=== PATIENT | female | born 1955 | race Caucasian/White ===

== ENCOUNTER 2018-05-24 19:56 | Emergency (ER) | payer BC ==
[2018-05-24 20:09] VITALS: BP 192/97
--- NOTE | 2018-05-24 20:22 | UC ---
Abdominal Pain Female HPI - HPI Summary HPI Summary: This is jasmina Jones documenting for attending Carlos Lainez MD. This patient is a 62 year old F presenting to [facility] accompanied by her with a chief complaint of cramping abdominal pain since 4 days ago. The patient notes that the pain began in her LLQ and has since radiated to her RLQ. The patient rates the pain 9/10 in severity. Symptoms aggravated by change in position. Symptoms alleviated by nothing. Patient reports bloating, sore throat , decreased appetite, and feeling hot and flushed. Patient denies abnormal bowel movements or dysuria. Patient has hx of diabetes. - History of Current Complaint Chief Complaint: UCAbdominalPain Stated Complaint: ABD PAIN Time Seen by Provider: 05/24/18 20:11 Hx Obtained From: Patient Onset/Duration: Gradual Onset, Lasting Days - 4 days, Still Present Timing: Constant Severity Initially: Moderate Severity Currently: Moderate Pain Intensity: 9 Pain Scale Used: 0-10 Numeric Location: Discrete At: LLQ Radiates: Yes Radiates to: RLQ Character: Cramping Aggravating Factor(s): Movement - change in position Alleviating Factor(s): Nothing Associated Signs and Symptoms: Positive: Decreased Appetite. Negative: Urinary Symptoms Allergies/Adverse Reactions: Allergies Allergy/AdvReac Type Severity Reaction Status Date / Time bacitracin Allergy Rash Verified 05/24/18 20:10 [From Neosporin ([id number])] latex Allergy Rash Verified 05/24/18 20:10 neomycin Allergy Rash Verified 05/24/18 20:10 [From Neosporin ([id number])] polymyxin B Allergy Rash Verified 05/24/18 20:10 [From Neosporin ([id number])] tetracycline Allergy Swelling Verified 05/24/18 20:10 novacaine Allergy Rash Uncoded 05/24/18 20:10 Home Medications: Home Medications NK [No Home Medications Reported] 05/24/18 [History Confirmed 05/24/18] PMH/Surg Hx/FS Hx/Imm Hx Endocrine History: Diabetes - Surgical History Surgical History: Yes Surgery Procedure, Year, and Place: ARTHROSCOPIC BOTH KNEES,2009,2010-ABLATION LEFT LEG, R BREAST MARKER, TONSILLECTOMY - Family History Known Family History: Positive: None, Other - Pt denies any relevant family history. - Social History Alcohol Use: None Substance Use Type: None Smoking Status (MU): Never Smoked Tobacco - Immunization History Most Recent Influenza Vaccination: never Most Recent Tetanus Shot: unsure Most Recent Pneumonia Vaccination: has not had Review of Systems Constitutional: Other - feeling hot and flushed ENT: Sore Throat Gastrointestinal: Negative - negative diarrhea, Abdominal Pain - LLQ, RLQ Genitourinary: Negative - negative dysuria All Other Systems Reviewed And Are Negative: Yes Physical Exam - Summary Physical Exam Summary: General: well-appearing, mild pain distress Skin: warm, color reflects adequate perfusion, dry Head: normal Eyes: EOMI, SRIDHAR ENT: normal Neck: supple, nontender Respiratory: CTA, breath sounds present Cardiovascular: RRR Abdomen: soft, tender to palpation in LLQ, hypoactive bowel sounds Bowel: present Musculoskeletal: normal, strength/ROM intact Neurological: sensory/motor intact, A&O x3 Psychological: affect/mood appropriate Triage Information Reviewed: Yes Vital Signs: Initial Vital Signs Temp 99.4 F 05/24/18 20:03 Pulse 92 05/24/18 20:03 Resp 18 05/24/18 20:03 BP 192/97 05/24/18 20:03 Pulse Ox 99 05/24/18 20:03 Vital Signs Reviewed: Yes Discharge - Sign-Out/Discharge Documenting (check all that apply): Patient Departure - Discharge Plan Condition: Stable Disposition: HOME-RECOMMEND TO ED Patient Education Materials: Acute Abdominal Pain (ED) Referrals: Pierce Fernández MD [Primary Care Provider] - Additional Instructions: GO DIRECTLY TO THE EMERGENCY DEPARTMENT FOR FURTHER EVALUATION OF YOUR ABDOMINAL PAIN.
== END 2018-05-24 20:25 | disposition home health service (06) ==
LOC: UCEAST 19:56
DX: R10.32 Left lower quadrant pain (principal); R10.31 Right lower quadrant pain; R63.0 Anorexia; J02.9 Acute pharyngitis, unspecified; R14.0 Abdominal distension (gaseous); E11.9 Type 2 diabetes mellitus without complications; Z88.1 Allergy status to other antibiotic agents; Z91.040 Latex allergy status; Z88.8 Allergy status to other drugs, medicaments and biological substances
CPT/HCPCS: 99212; G0463

== ENCOUNTER 2018-05-24 20:44 | Emergency (ER) | payer BC ==
[2018-05-24] MEDS ORDERED: NS 0.9% 1000 ML* 1,000 ML IV ONE (22:00)
[2018-05-24] MEDS ORDERED: Ondansetron INJ* 2 MG/ML VIAL IV PRN (22:00)
[2018-05-24] MEDS ORDERED: Morphine VIAL* 10 MG/ML 1 ML VIAL IV ONE (22:00)
[2018-05-24 22:24] LABS: ABS Basophils 0.1 10^3/ul (0-0.2); ABS Eosinophils 0.1 10^3/ul (0-0.6); ABS Lymphocytes 2.6 10^3/ul (1.0-4.8); ABS Neutrophils 8.6 10^3/ul (1.5-7.7); ABS Nucleated RBC 0 10^3/ul; Eosinophil % 0.9 % (0-6); Hematocrit 39 % (35-47); Hemoglobin 13.1 g/dl (12.0-16.0); Lymphocyte % 21.1 % (25-47); Mean Corpuscular HGB Conc 33 g/dl (31-36); Mean Corpuscular Hemoglobin 28 pg (27-31); Mean Corpuscular Volume 85 fL (80-97); Mean Platelet Volume 9.1 um3 (7.4-10.4); Nucleated Red Blood Cells % 0; Platelet Count 159 10^3/ul (150-450); Red Blood Count 4.63 10^6/ul (4.00-5.40); Red Cell Distribution Width 17 % (10.5-15); White Blood Count 12.5 10^3/ul (3.5-10.8)
[2018-05-24 22:42] LABS: EGFR Non-African American 83.4 (>60)
[2018-05-24] MEDS ORDERED: Iodixanol* (CONTRAST) 320 MG/ML 100 ML SDV IV ONE (23:08)
[2018-05-25] MEDS ORDERED: Levofloxacin TAB* 500 MG PO ONE (03:13)
[2018-05-25] MEDS ORDERED: metroNIDAZOLE TAB* 250 MG PO ONE (03:14)
--- NOTE | 2018-05-25 03:19 | ED ---
Abdominal Pain/Female - HPI Summary HPI Summary: Complains of left lower quadrant pain, nausea, hot flashes, bloating, decreased appetite 4 days. Sent from urgent care for further evaluation. Abdominal pain described as sharp, intermittent, worse 9/10, radiating to right side. Denies prior history of same, fever, cough, sore throat, CP, SOB, diarrhea, change in urine, vaginal symptoms. Medical history is HTN, DM, gastroparesis. History of noncompliance with HTN and DM meds. Abdominal/pelvic surgical history is none. - History of Current Complaint Chief Complaint: EDAbdPain Stated Complaint: ABD PAIN/FEVER Time Seen by Provider: 05/24/18 21:56 Hx Obtained From: Patient ?: No Onset/Duration: Lasting Days Timing: Intermittent Episode Lasting Severity Initially: Moderate Severity Currently: Moderate Pain Intensity: 9 Pain Scale Used: 0-10 Numeric Location: Discrete At: RLQ, Discrete At: LLQ Radiates: No Character: Sharp Aggravating Factor(s): Nothing Alleviating Factor(s): Nothing Associated Signs and Symptoms: Positive: Decreased Appetite, Vomiting Allergies/Adverse Reactions: Allergies Allergy/AdvReac Type Severity Reaction Status Date / Time bacitracin Allergy Rash Verified 05/24/18 20:59 [From Neosporin ([id number])] latex Allergy Rash Verified 05/24/18 20:59 neomycin Allergy Rash Verified 05/24/18 20:59 [From Neosporin ([id number])] polymyxin B Allergy Rash Verified 05/24/18 20:59 [From Neosporin ([id number])] tetracycline Allergy Swelling Verified 05/24/18 20:59 novacaine Allergy Rash Uncoded 05/24/18 20:59 PMH/Surg Hx/FS Hx/Imm Hx Endocrine/Hematology History: Reports: Hx Diabetes - TYPE II, Other Endocrine/ Hematological Disorders - hx leukemia Cardiovascular History: Reports: Hx Hypertension Denies: Hx Cardiac Arrest, Hx Pacemaker/ICD History: Denies: Hx Dialysis, Hx Renal Disease Sensory History: Denies: Hx Hearing Aid Neurological History: Denies: Hx CVA Psychiatric History: Denies: Hx Panic Disorder - Cancer History Cancer Type, 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 - Social History Alcohol Use: None Substance Use Type: Reports: None Smoking Status (MU): Never Smoked Tobacco Review of Systems Constitutional: Negative Eyes: Negative ENT: Negative Cardiovascular: Negative Respiratory: Negative Positive: Abdominal Pain, Vomiting, Nausea Genitourinary: Negative Musculoskeletal: Negative Skin: Negative Neurological: Negative Psychological: Normal All Other Systems Reviewed And Are Negative: Yes Physical Exam - Summary Physical Exam Summary: Tender to palpation left lower quadrant. Triage Information Reviewed: Yes Vital Signs On Initial Exam: Initial Vitals Temp Pulse Resp BP Pulse Ox 99 F 86 17 163/94 98 05/24/18 20:59 05/24/18 20:59 05/24/18 20:59 05/24/18 20:59 05/24/18 20:59 Vital Signs Reviewed: Yes Appearance: Positive: Well-Appearing Skin: Positive: Warm Head/Face: Positive: Normal Head/Face Inspection Eyes: Positive: Normal Neck: Positive: Supple Respiratory/Lung Sounds: Positive: Clear to Auscultation Cardiovascular: Positive: Normal Abdomen Description: Positive: Other: Musculoskeletal: Positive: Normal Neurological: Positive: Normal Psychiatric: Positive: Normal AVPU Assessment: Alert - [place] Coma Scale Best Eye Response: 4 - Spontaneous Best Motor Response: 6 - Obeys Commands Best Verbal Response: 5 - Oriented Coma Scale Total: 15 Diagnostics - Vital Signs Vital Signs Temp Pulse Resp BP Pulse Ox 05/25/18 02:31 93 132/77 91 05/25/18 02:02 89 119/70 92 05/25/18 02:00 89 93 05/25/18 01:31 80 159/76 93 05/25/18 01:01 73 138/89 93 05/25/18 01:00 75 94 05/25/18 00:01 78 147/75 94 05/25/18 00:00 75 94 05/24/18 23:32 76 161/81 94 05/24/18 23:02 75 135/70 93 05/24/18 23:00 72 93 05/24/18 22:49 16 05/24/18 22:31 79 155/84 93 05/24/18 22:06 92 182/99 97 05/24/18 22:01 92 98 05/24/18 20:59 99 F 86 17 163/94 98 - Laboratory Lab Results: Lab Results 05/24/18 05/24/18 05/24/18 Range/Units 22:14 22:14 22:14 WBC 12.5 H (3.5-10.8) 10^3/ul RBC 4.63 (4.00-5.40) 10^6/ul Hgb 13.1 (12.0-16.0) g/dl Hct 39 (35-47) % MCV 85 (80-97) fL MCH 28 (27-31) pg MCHC 33 (31-36) g/dl RDW 17 H (10.5-15) % Plt Count 159 (150-450) 10^3/ul MPV 9.1 (7.4-10.4) um3 Neut % (Auto) 68.9 (38-83) % Lymph % (Auto) 21.1 L (25-47) % [place] % (Auto) 8.2 H (0-7) % Eos % (Auto) 0.9 (0-6) % Baso % (Auto) 0.9 (0-2) % Absolute Neuts (auto) 8.6 H (1.5-7.7) 10^3/ul Absolute Lymphs (auto) 2.6 (1.0-4.8) 10^3/ul Absolute Monos (auto) 1.0 H (0-0.8) 10^3/ul Absolute Eos (auto) 0.1 (0-0.6) 10^3/ul Absolute Basos (auto) 0.1 (0-0.2) 10^3/ul Absolute Nucleated RBC 0 10^3/ul Nucleated RBC % 0 Sodium 131 L (135-145) mmol/L Potassium 3.9 (3.5-5.0) mmol/L Chloride 99 L (101-111) mmol/L Carbon Dioxide 27 (22-32) mmol/L Anion Gap 5 (2-11) mmol/L BUN 12 (6-24) mg/dL Creatinine 0.71 (0.51-0.95) mg/dL Est GFR ( Amer) 100.9 (>60) Est GFR (Non-Af Amer) 83.4 (>60) BUN/Creatinine Ratio 16.9 (8-20) Glucose 208 H (70-100) mg/dL Lactic Acid 0.8 (0.5-2.0) mmol/L Calcium 8.7 (8.6-10.3) mg/dL Total Bilirubin 0.60 (0.2-1.0) mg/dL AST 13 (13-39) U/L ALT 17 (7-52) U/L Alkaline Phosphatase 61 (34-104) U/L C-Reactive Protein 41.12 H (<8.01) mg/L Total Protein 9.0 H (6.4-8.9) g/dL Albumin 3.4 (3.2-5.2) g/dL Globulin 5.6 H (2-4) g/dL Albumin/Globulin Ratio 0.6 L (1-3) Lipase 11 (11.0-82.0) U/L Result Diagrams: 05/24/18 22:14 05/24/18 22:14 Lab Statement: Any lab studies that have been ordered have been reviewed, and results considered in the medical decision making process. - CT ab/pel w CT Interpretation: Positive (See Comments) - Diverticulitis CT Interpretation Completed By: Radiologist Abdominal Pain Fem Course/Dx - Course Course Of Treatment: Complains of left lower quadrant pain, nausea, hot flashes , bloating, decreased appetite 4 days. Sent from urgent care for further evaluation. Abdominal pain described as sharp, intermittent, worse 9/10, radiating to right side. Denies prior history of same, fever, cough, sore throat, CP, SOB, diarrhea, change in urine, vaginal symptoms. Medical history is HTN, DM, gastroparesis. History of noncompliance with HTN and DM meds. Abdominal/pelvic surgical history is none. Tender to palpation left lower quadrant. Vital signs normal. Elevated white count. Labs otherwise normal. ET positive for diverticulitis. Started on Levaquin and Flagyl here in the ED. Rx for Levaquin 500 mg daily, Flagyl 500 mg 3 times a day, both 7 days. Rx for Phenergan. Rx for tramadol. Follow up with GI - Diagnoses Provider Diagnoses: Diverticulitis Discharge - Sign-Out/Discharge Documenting (check all that apply): Patient Departure - Discharge Plan Condition: Stable Disposition: HOME Prescriptions: Levofloxacin TAB* [Levaquin TAB*] 500 mg PO DAILY 7 Days #7 tab metroNIDAZOLE [Flagyl 500 MG TAB] 500 mg PO TID 7 Days #21 tab Promethazine TAB* [Phenergan TAB*] 25 mg PO Q8H PRN 5 Days #15 tab PRN Reason: Nausea Tramadol HCl 50 mg PO TID 4 Days #8 tablet MDD 3 Patient Education Materials: Diverticulitis (ED), Diverticulitis Diet (ED) Referrals: Pirece Fernández MD [Primary Care Provider] - Additional Instructions: Take antibiotics as directed. Follow-up with primary care. Return to the ED for any new or worsening symptoms - Billing Disposition and Condition Condition: STABLE Disposition: Home
[2018-05-25] MEDS ORDERED: traMADol TAB* 50 MG PO ONE (03:26)
[2018-05-25 03:34] VITALS: BP 159/79
--- NOTE | 2018-05-25 08:09 | RAD ---
INDICATION: 4 days abdominal pain. Nausea. Remote history of childhood leukemia. COMPARISON: August 08, 2015 abdominal ultrasound. TECHNIQUE: Multidetector CT images were obtained from the lung bases to the ischial tuberosities with 141 mL Visipaque 320 IV and oral contrast. Multiplanar reformation. REPORT: VISUALIZED INFERIOR THORAX: Unremarkable. LIVER / GALLBLADDER / PANCREAS / SPLEEN: Decreased density of the liver consistent with hepatosteatosis. Negative for focal hepatic lesions or biliary dilatation. Unremarkable gallbladder, pancreas, spleen. ALIMENTARY TRACT: Negative for CT abnormality of the upper GI, small bowel, or immediate infra cecal appendix best visualized on the coronal reformatted images. Moderately severe colonic diverticulosis most prominent at the sigmoid colon. Mural bowel thickening at the proximal sigmoid colon with mild perienteric inflammatory change and trace fluid along the LEFT pelvic sidewall. No extra enteric gas or loculated perienteric abscess collection evident. Small fat-containing umbilical hernia without inflammatory change. MESENTERIC: Unremarkable. ADRENAL / GENITOURINARY: Normal RIGHT adrenal gland. 1.4 cm diameter LEFT adrenal nodule is denser than specific for a lipid rich adenoma however assessment is limited with contrast-enhanced CT. Unremarkable kidneys with symmetric nephrograms and pyelograms. No CT abnormality of the kidneys, ureters, or urinary bladder. Unremarkable anteverted uterus and adnexal regions. RETROPERITONEAL: Negative for lymphadenopathy. VASCULAR: Negative for aortoiliac aneurysm. Incomplete distention of the IVC. BONES: Negative for suspicious focal osseous lesions. Advanced degenerative spondylosis and facet joint osteoarthritis at L4-L5 and L5-S1 with moderate bilateral foraminal stenosis resulting at both levels. SOFT TISSUE: Unremarkable. IMPRESSION: #. Hepatosteatosis. #. Abnormalities at the proximal sigmoid colon most likely attributable to acute diverticulitis with mild perienteric inflammatory change and trace free fluid along the LEFT pelvic sidewall. Negative for extra enteric gas or perienteric abscess. Imaging follow-up after therapy suggested to assess for resolution of the bowel wall thickening. #. Noncontrast CT of the adrenal glands suggesting that time of CT follow-up of the sigmoid colon to further characterize the relative low suspicion small 1.4 cm LEFT adrenal nodule.
== END 2018-05-25 03:34 | disposition home or self-care (01) ==
LOC: ED 20:44
DX: K57.92 Diverticulitis of intestine, part unspecified, without perforation or abscess without bleeding (principal); R10.32 Left lower quadrant pain; R11.2 Nausea with vomiting, unspecified
CPT/HCPCS: 36415; 74177; 80053; 83605; 83690; 85025; 86140; 96361; 96374; 99284; A9270-GY; J2270; Q9967

== ENCOUNTER 2018-08-25 05:58 | Day surgery (SDC) | payer BC ==
[~2018-08-25 05:58] MED LIST: Buffered Lidocaine 0.9% SYRIN* 5 ML/SYR SYRINGE INTRADERM ONE
[2018-08-25] MEDS ORDERED: Famotidine IV* 10 MG/ML 2 ML (20 mg) IV ONE (06:00)
[2018-08-25] MEDS ORDERED: Buffered Lidocaine 0.9% SYRIN* 5 ML/SYR SYRINGE ONE (06:03)
[2018-08-25] MEDS ORDERED: Famotidine IV* 10 MG/ML 2 ML (20 mg) ONE (06:03)
[2018-08-25 06:55] LABS: ABS Basophils 0.1 10^3/ul (0-0.2); ABS Eosinophils 0.2 10^3/ul (0-0.6); ABS Lymphocytes 2.8 10^3/ul (1.0-4.8); ABS Monocytes 0.8 10^3/ul (0-0.8); ABS Neutrophils 3.9 10^3/ul (1.5-7.7); ABS Nucleated RBC 0 10^3/ul; Eosinophil % 2.2 % (0-6); Hematocrit 39 % (35-47); Hemoglobin 13.1 g/dl (12.0-16.0); Lymphocyte % 36.3 % (25-47); Mean Corpuscular HGB Conc 33 g/dl (31-36); Mean Corpuscular Hemoglobin 29 pg (27-31); Mean Corpuscular Volume 87 fL (80-97); Mean Platelet Volume 8.9 um3 (7.4-10.4); Nucleated Red Blood Cells % 0.1; Platelet Count 181 10^3/ul (150-450); Red Blood Count 4.53 10^6/ul (4.00-5.40); Red Cell Distribution Width 17 % (10.5-15); White Blood Count 7.8 10^3/ul (3.5-10.8)
[2018-08-25] MEDS ORDERED: fentaNYL* 50 MCG/ML 2 ML VIAL (100 MCG VIAL) ONE ×2 (07:12→08:29)
[2018-08-25] MEDS ORDERED: Mivacurium Chloride* 20 MG/10 ML VIAL IV ONE (07:12)
[2018-08-25] MEDS ORDERED: Ketorolac INJ* 30 MG/ML 1 ML VIAL ONE ×2 (07:12→07:13)
[2018-08-25] MEDS ORDERED: Propofol* 10 MG/ML 20 ML BTL IV PUSH ONE (07:12)
[2018-08-25] MEDS ORDERED: Midazolam* 1 MG/ML 5 ML VIAL (5 MG) ONE (07:12)
[2018-08-25] MEDS ORDERED: Lidocaine 2% PF * 5 ML VIAL ONE (07:12)
[2018-08-25] MEDS ORDERED: Ondansetron INJ* 2 MG/ML VIAL ONE (07:12)
[2018-08-25] MEDS ORDERED: Dexamethasone IV* 4 MG/ML 1 ML (4 MG) ONE (07:12)
[2018-08-25] MEDS ORDERED: Metoclopramide IV* 5 MG/ML 2 ML VIAL ONE (07:12)
[2018-08-25] MEDS ORDERED: oxyCODONE/Acetamin 5/325 MG* TAB PO PRN (08:22)
[2018-08-25] MEDS ORDERED: Naloxone* 0.4 MG/ML 1 ML VIAL IV PRN (08:22)
[2018-08-25] MEDS ORDERED: Ondansetron INJ* 2 MG/ML VIAL IV PRN (08:22)
[2018-08-25] MEDS ORDERED: fentaNYL* 50 MCG/ML 2 ML VIAL (100 MCG VIAL) IV PRN (08:22)
[2018-08-25] MEDS ORDERED: Ibuprofen TAB* 600 MG PO PRN (08:58)
[2018-08-25 10:43] VITALS: BP 154/83
--- NOTE | 2018-08-25 11:28 | OP ---
OPERATIVE REPORT: DATE OF OPERATION: 08/25/18 DATE OF : 55 SURGEON: Michael Waterman MD ANESTHESIOLOGIST: Dr. Yin. ANESTHESIA: General endotracheal anesthesia. PRE-OP DIAGNOSIS: Postmenopausal bleeding. POST-OP DIAGNOSIS: Postmenopausal bleeding. OPERATIVE PROCEDURE: Dilation hysteroscopy curettage. ESTIMATED BLOOD LOSS: Minimal, less than 20 cc. FINDINGS: A small midline uterus with a posterior cervix. Uterus sounded to 7. On hysteroscopy, no polyps were seen. The endometrium appeared atrophic. Both tubal ostia were seen. No adnexal masses were palpated. The exam was limited by habitus. The deficit was 143 cc of fluid. COMPLICATIONS: None. SPONGE COUNT: Correct x2. CONDITION: The patient was brought to the recovery room awake and in stable condition. DESCRIPTION OF PROCEDURE: The patient was brought to the operating room. When general anesthesia wa s found to be adequate, the patient was prepped and draped in the usual sterile fashion in the dorsal lithotomy position. Time-out was performed. Exam under anesthesia was done. A weighted speculum w as placed in the vagina. The anterior lip of the cervix was grasped with a single tooth tenaculum an d the cervix was gently and easily dilated with graduated Velazquez dilators. The hysteroscope was intro duced with the above findings noted. The uterus was sounded to 7. The hysteroscope was removed. Cu rettage was performed and endometrial curettings were sent to pathology. The single tooth tenaculum was removed from the anterior lip of the cervix. Excellent hemostasis was visualized and the patient was brought to the recovery room awake and in stable condition. [id number]/[facility] #: [id number]
== END 2018-08-25 10:47 | disposition home or self-care (01) ==
LOC: OR 05:58
PROVIDERS: ATTEND Obstetrics & Gynecology
DX: N95.0 Postmenopausal bleeding (principal); I10 Essential (primary) hypertension; M19.90 Unspecified osteoarthritis, unspecified site; E11.9 Type 2 diabetes mellitus without complications
CPT/HCPCS: 36415; 85025; 86850; 86900; 86901; 88305; J1100; J1885; J2250; J2405; J2704; J2765; J3010

== ENCOUNTER 2019-07-13 20:55 | Emergency (ER) | payer BC ==
--- OUTSIDE RECORDS SUMMARY | 2019-07-13 21:03 | XMS REPORT | Continuity of Care Document ---
:1955 External Reference #:[id number] Author Name Sandra Latham M.D. (transmitted by agent of provider Kavita Aviles) Address [facility] 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 Onset: 2018 Premature beats Sandra Latham M.D. Onset: 06/18/2019 Supraventricular premature beats Sandra Latham M.D. Onset: 06/18/2019 Family history of cardiovascular disease in Sandra Latham M.D. Onset: 2018 first degree female relative less than 65 years of age Social History Type Date Description Comments Sex Unknown ETOH Use Denies alcohol use Tobacco Use Start: Unknown Patient has never smoked Smoking Status Reviewed: 06/18/19 Patient has never smoked Exercise Type/Frequency walking occassionally Allergies, Adverse Reactions, Alerts Active Allergies Reaction Severity Comments Date Neosporin rash 06/22/2018 Tetracycline 07/04/2018 Inactive Allergies NKDA 08/08/2012 Medications Active Medications SIG Qnty Indications Ordering Date Provider Luba CD 1 by mouth every 30caps R94.39 Sandra Latham, 05/25/2019 120mg Caps day M.D. ER 24HR Biotin 5000mcg One tab by mouth 4 Sandra Latham, 05/04/2019 days a week M.D. Vitamin C 100-MG one tab by mouth 4 Unknown 05/03/2019 days a week Solgar 1000mcg Sublingual 4 days Sandra Latham, 05/03/2019 a week [place] Chromium Picolate One tab by mouth 4 Unknown 05/03/2019 500mcg days a week Super B-Complex One tab by mouth 4 Unknown days a week Capsules Vitamin D3 1000 Iu One tab by mouth 4 Unknown days a week Vitamin A 3750mcg One tab by mouth 4 Unknown days a week Krill Oil 1 by mouth 4 days Unknown 1000mg a week Capsules Saccharomyces One tab by mouth 4 Unknown Boulardii + Mos 5 days a week Bill Cells 200MG Magnesium Potassium One tab by mouth 4 Unknown Asparate Mag 600MG days a week Pot 198MG History Medications Premarin 0.5grams vaginally 30gm N94.11 Michael Waterman, 01/30/2019 - 0.625mg/GM qHS x 14 nights 05/03/2019 Cream then 2x/week Medications Administered in Office Medication SIG Qnty Indications Ordering Provider Date Triamcinolone (Kenalog) Jakub Clinton MD 07/04/2018 Injection Immunizations Description No Information Available Vital Signs Date Vital Result Comment 06/18/2019 3:58pm Height 67.75 inches 5'7.75" Weight 250.00 lb no shoes. Heart Rate 72 /min BP Systolic Sitting 140 mmHg L arm regular cuff BP Diastolic Sitting 90 mmHg L arm regular cuff BP Systolic Standing 160 mmHg BP Diastolic Standing 90 mmHg Respiratory Rate 18 /min BMI (Body Mass Index) 38.3 kg/m2 Ejection Fraction 55-60% 04/201905/04/2019 10:06am Height 67.75 inches 5'7.75" Weight 254.12 lb with shoes Heart Rate 74 /min BP Systolic Sitting 142 mmHg ule reg cuff BP Diastolic Sitting 84 mmHg ule reg cuff BP Systolic Standing 136 mmHg ule reg cuff BP Diastolic Standing 80 mmHg ule reg cuff BMI (Body Mass Index) 38.9 kg/m2 Ejection Fraction 60-65% Echo 08/08/15 Results Test Date Facility Test Result H/L Range Note Comprehensive Metabolic 05/01/2019 N2N/CCD Import Sodium 139 mEq/L 134- 149 Prof Potassium 3.9 mEq/L 3.6-5.5 Chloride 102 mEq/L 94-112 Carbon Dioxide 31 mEq/L 21-32 Glucose 160 mg/dL High 70-105 1 BUN 15 mg/dL 6-26 Creatinine 0.6 mg/dL 0.6-1.4 BUN/Creat Ratio 25.0 CALC 8-36 Calcium 8.6 mg/dL 8.6-10.2 Total Protein 10.2 g/dL High 6.4-8.3 2 Albumin 3.5 g/dL Low 3.8-5.5 3 Globulin 6.7 g/dL High 2-4.8 A/G Ratio 0.5 CALC Low 0.6-2.3 Alk. Phosphatase 48 U/L 30-110 Alt (SGPT) 24 U/L 7-35 Ast (Sgot) 16 U/L 5-34 Total Bilirubin 0.7 mg/dL 0.2-1.3 GFR Non- >60 ml/min/1.73m^ GFR >60 ml/min/1.73m^ Lipid Profile 05/01/2019 N2N/CCD Import Cholesterol 152 mg/dL 120-200 Triglycerides 203 mg/dL High 30-200 HDL Cholesterol 38 mg/dL 30-85 LDL (Calculated) 73 CALC 0-129 VLDL Cholesterol 41 mg/dL 0-50 HDL Risk Factor 4.0 CALC 0-4.4 Laboratory test 01/30/2019 [facility] Gardnerella/Yeast: SEE RESULT [address] [place] [address] [phone] 1 NON-FASTING 2 consistent w/ previous results 3 RESULTS VERIFIED BY REPEAT ANALYSIS 4 SEE RESULT BELOW Name: FABIANA DICKINSON : [address]: Michael Waterman MD Acct: [id number] Unit: [id number] AGE: 63 Location: [facility] Re01/30/19 SEX: F Status: REG REF SPEC: [id number] ROB: 01/30/19-[address]: Michael Waterman MD REQ: [id number] RECD: 01/30/19 STATUS: COMP _ SOURCE: VAGINAL SPDESC: ORDERED: Maximus,Yeast DNA COMMENTS: [id number] Would you like to order Trichomonas Vaginalis testing? No Procedure Result Reported Site Gardnerella/Yeast: Vaginal DNA Final 01/31/19- 1230 ML Organism 1 Negative Gardnerella Organism 2 Negative Jocy The presence of G. vaginalis, although suggestive, is not diagnostic for bacterial vaginosis. Results should be interpreted in conjuction with other clinical and laboratory data available. Women with vaginal discharge should be evaluated for risk factors of cervicitis and pelvic inflammatory disease, toxic shock syndrome (S.aureus), and if present, evaluated for organisms not included in this assay such as N. gonorrhoeae, C. trachomatis, Mobiluncus, Mycoplasma and/or Prevotella. Mixed infections may occur. The performance of this test on patient specimens collected during or immediately after antimicrobial therapy is unknown. The presence or absence of Jocy species, or G. vaginalis cannot be used as a test for therapeutic success or failure. * [facility] - Main Lab . END OF REPORT DEPARTMENT OF PATHOLOGY, [address] [place] [address] Jamal Grady M.D. Director [facility] # [id number] Procedures Date Code Description Status 05/25/2019 17395 Stress Test Completed 05/09/2019 79214 ECHO Transthoracic, Real-Time 2D With Doppler And Color Completed Flow 05/09/2019 83326 ECHO Transthoracic, Real-Time 2D With Doppler And Color Completed Flow 05/04/2019 66449 EKG Tracing & Interpretation Completed 02/07/2019 [id number] Mammogram Completed 08/08/2015 [id number] Mammogram Completed Medical Devices Description No Information Available Encounters Type Date Location Provider Dx Diagnosis Office Visit 05/04/2019 [facility] Sandra Latham M.D. 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 06/18/2019 R06.02 Shortness of breath Sandra Latham M.D. 06/18/2019 I49.1 Atrial premature depolarization Sandra Latham M.D. 06/18/2019 I49.3 Ventricular premature depolarization Sandra Latham M.D. 06/18/2019 I10 Essential (primary) hypertension Sandra Latham M.D. 06/18/2019 I42.8 Other cardiomyopathies Sandra Latham M.D. 05/25/2019 R94.39 Abnormal result of other cardiovascular function Sandra Latham M.D. study 05/25/2019 I10 Essential (primary) hypertension Sandra Latham M.D. 05/25/2019 M79.10 Myalgia, unspecified site Sandra Latham M.D. 05/25/2019 R06.02 Shortness of breath Sandra Latham M.D. 05/09/2019 R06.02 Shortness of breath Sandra Latham M.D. 05/09/2019 R06.02 Shortness of breath Ica ECHO Schedule 05/09/2019 R00.2 Palpitations Sandra Latham M.D. 05/09/2019 R00.2 Palpitations Ica ECHO Schedule 05/09/2019 Z82.49 Family hx of ischem heart dis and oth dis of the Ica ECHO Schedule circ sys 05/04/2019 R00.2 Palpitations Sandra Latham M.D. 05/04/2019 R06.02 Shortness of breath Sandra Latham M.D. 05/04/2019 E11.8 Type 2 diabetes mellitus with unspecified Sandra Latham M.D. complications 05/04/2019 Z82.49 Family history of ischemic heart disease and Sandra Latham M.D. other diseases 05/04/2019 R06.01 Orthopnea Sandra Latham M.D. 01/30/2019 Z12.31 Encounter for screening mammogram for malignant Michael Waterman MD neoplasm of 01/30/2019 N94.11 Superficial (introital) dyspareunia Michael Waterman MD 01/30/2019 N64.4 Mastodynia Michael Waterman MD Plan of Treatment Future Appointment(s):07/12/2019 1:00 pm - Carl Desai MD at [facility]06/20/2019 4:30 pm - Yolanda Montero MD at [facility] Kkxflawdszr77/10/2019 2:00 pm - Micahel Waterman MD at [facility]09/04/2019 1:00 pm - Michael Waterman MD at [facility]2018 - Sandra Latham M.D.R00.2 PalpitationsComments:Your PVC's gave you symptoms.Continue Diltiazem.Follow up:6 months with ECG.R06.02 Shortness of breathComments:No evidence of significant blockages in the heart on the stress test. OK/encourage gradual increase in activity.I49.1 Atrial premature emtcprhzavbaiyG57.3 Ventricular premature depolarizationNew Orders: Echocardiogram, Ordered: 06/18/19I10 Essential (primary) hypertensionNew Orders: Echocardiogram, Ordered: 06/18/19Comments:Continue diltiazem.Recommendations: Avoid excessive salt, 2 grams (2000 milligrams) daily is your goal. Regular exercise, goal is 3 hours weekly. Check BP's at home or at a pharmacy and bring these in with you to the next visit. Future:may add ACEI or ARB with diabetes or increase cardiazem.I42.8 Other cardiomyopathiesNew Orders:Echocardiogram, Ordered: 06/18/19Comments:Thick heart flores are from high BP and Diabetes. Functional Status Description No Information Available Mental Status Description No Information Available Referrals Description No Information Available
--- OUTSIDE RECORDS SUMMARY | 2019-07-13 21:03 | XMS REPORT | Continuity of Care Document ---
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 Problems Active Problems Provider Date Disorder of [...] Use Start: Unknown Patient has never smoked Recreational Drug Use Denies Drug Use Smoking Status Reviewed: 07/12/19 Patient has never smoked Exercise Type/Frequency walking occassionally Allergies, Adverse Reactions, Alerts Active Allergies Reaction Severity Comments Date Neosporin rash 06/22/2018 Glipizide stomach ache 07/12/2019 Metformin stomach ache 07/12/2019 Sulfa Antibiotics stomach ache 07/12/2019 Inactive Allergies NKDA 08/08/2012 Tetracycline 07/04/2018 Sulfasalazine sick to stomach 07/12/2019 Medications Active Medications SIG Qnty Indications Ordering Date Provider Farxiga 5mg once daily in 30tabs E11.8 Carl Desai MD 07/12/2019 5mg Tablets the morning Cardizem CD 1 by mouth every 30caps R94.39 Sandra Vazquezsher, 05/25/2019 120mg Caps day M.D. ER 24HR Biotin 5000mcg One tab by mouth 4 Sandra Vazquezsher, 05/04/2019 days a week M.D. Vitamin C 100-MG one tab by mouth 4 Unknown 05/03/2019 days a week Solgar 1000mcg B-12 Sublingual 4 Sandra Noa, 05/03/2019 days a week M.D. Chromium Picolate One tab by mouth 4 [...] Available Vital Signs Date Vital Result Comment 07/12/2019 12:52pm Height 67.75 inches 5'7.75" Weight 254.00 lb w/ shoes Heart Rate 98 /min BP Systolic Sitting 171 mmHg BP Diastolic Sitting 87 mmHg BMI (Body Mass Index) 38.9 kg/m2 07/10/2019 2:06pm Height 67.75 inches 5'7.75" Weight 251.00 lb Heart Rate 87 /min BP Systolic Sitting 152 mmHg BP Diastolic Sitting 74 mmHg Respiratory Rate 18 /min Body Temperature 98.9 F O2 % BldC Oximetry 96 % BMI (Body Mass Index) 38.4 kg/m2 Results Test Date Facility Test Result H/L Range Note Laboratory test 07/10/2019 [facility] Cytology SEE RESULT [address] [place] [address] [phone] Comprehensive 05/01/2019 N2N/CCD Import Sodium 139 mEq/L 134-149 Metabolic Prof Potassium 3.9 mEq/L 3.6-5.5 Chloride 102 mEq/L 94-112 Carbon Dioxide 31 mEq/L 21-32 Glucose 160 mg/dL High 70-105 2 BUN 15 mg/dL 6-26 Creatinine 0.6 mg/dL 0.6-1.4 BUN/Creat Ratio 25.0 CALC 8-36 Calcium 8.6 mg/dL 8.6-10.2 Total Protein 10.2 g/dL High 6.4-8.3 3 Albumin 3.5 g/dL Low 3.8-5.5 4 Globulin 6.7 g/dL High 2-4.8 A/G Ratio [...] Factor 4.0 CALC 0-4.4 Laboratory test 01/30/2019 [facility] Gardnerella/Yeast: SEE RESULT [address] Vaginal Dna BELOW [place], [place] [address] [phone] 1 SEE RESULTS BELOW Name: FABIANA DICKINSON: [address]: Michael Waterman MD Acct: [id number] Unit: [id number] AGE: 63 Location: [facility] Re07/10/19 SEX: F Status: REG REF SPEC: [id number] ROB: 07/10/[address]: Michael Waterman MD REQ: [id number] RECD: 07/10/19 STATUS: SOUT _ ORDERED: TP IMAGE ANALYS, HPV/Thin Prep, HPV 16/18 GENE COMMENTS: [id number] Negative for Intraepithelial lesion or Malignancy Date Time Test Result Flag (u) Normal Range 07/10/19 1502 HPV ALPESH RFLX GE Negative Negative The high-risk HPV types detected by the assay include: 16, 18, 31, 33, 35, 39, 45, 51, 52, 56, 58, 59, 66, and 68. A. Ectocervical/Endocervical Specimen Adequacy: Satisfactory of evaluation Transformation zone component not identified Patient Information: HPV: High risk HPV RNA testing regardless of pap results. HPV 16/18 Genotype Reflex Actual Specimen Date: 07/10/19 ?: N Post Menopausal?: Y Hysterectomy?: N Signed by and Reported on: SINAN Dave(ASCP) 1138 This Pap test was evaluated with the assistance of the ThinPrep Test Imaging System. Due to cytologic findings at the application software engineer microscope, comprehensive manual rescreening by a Ductfixing Plumber may be required. The Pap Smear is a screening test designed to aid in the detection of premalignant and malignant conditions of the uterine cervix. It is not a diagnostic procedure and should not be used as the sole means of detecting cervical cancer. Both false- positive and false- negative reports do occur. Depending on your risk status, a Pap smear should be obtained and evaluated every 1-3 years. END OF REPORT DEPARTMENT OF PATHOLOGY, [address] [place] [address] Jamal Grady M.D. Director [facility] # [id number] 2 NON-FASTING 3 consistent w/ previous results 4 RESULTS VERIFIED BY REPEAT ANALYSIS 5 SEE RESULT BELOW Name: RAHATDASHAFABIANA : [address]: Michael Waterman MD Acct: [id number] Unit: [id number] AGE: 63 Location: [facility] Re01/30/19 SEX: F Status: REG REF SPEC: [id number] ROB: 01/30/19-[address]: Michael Waterman MD REQ: [id number] RECD: 01/30/19 STATUS: COMP _ SOURCE: VAGINAL SPDESC: ORDERED: Maximus,Yeast DNA COMMENTS: [id number] Would you like to order Trichomonas Vaginalis [...] . END OF REPORT DEPARTMENT OF PATHOLOGY, [address] [place] [address] Jamal Grady M.D. Director [facility] # [id number] Procedures Date Code Description Status 05/25/2019 27601 Stress Test Completed 05/09/2019 02046 ECHO Transthoracic, Real-Time 2D With Doppler And Color Completed Flow 05/09/2019 84577 ECHO Transthoracic, Real-Time 2D With Doppler And Color Completed Flow 05/04/2019 23689 EKG Tracing & Interpretation Completed 02/07/2019 [id number] Mammogram Completed 08/08/2015 [id number] Mammogram Completed Medical Devices Description No Information Available Encounters Type Date Location Provider Dx Diagnosis Office Visit 06/18/2019 [facility] Sandra Latham M.D. R00.2 Palpitations 3:20p [facility] R06.02 Shortness of breath I49.1 Atrial premature depolarization I49.3 Ventricular premature depolarization I10 Essential (primary) hypertension I42.8 Other cardiomyopathies Office Visit 05/04/2019 9:40a [facility] Sandra Latham R00.2 Palpitations Of [facility] AT [facility] [place] R06.02 Shortness of breath E11.8 Type 2 diabetes mellitus with unspecified complications Z82.49 Family hx of ischem heart dis and oth dis of the circ sys R06.01 Orthopnea Office Visit 01/30/2019 2:00p [employer] Michael Waterman, Z12.31 Encntr screen [facility] [place] mammogram for [place] malignant neoplasm of breast N94.11 Superficial (introital) dyspareunia N64.4 Mastodynia Assessments Date Code Description Provider 07/12/2019 E11.8 Type 2 diabetes mellitus with unspecified Carl Desai MD complications 07/12/2019 Z68.38 Body mass index (BMI) 38.0-38.9, adult Carl Desai MD 07/10/2019 Z01.419 Encounter for gynecological examination Michael Waterman MD (general) (routine) without abnormal findings 07/10/2019 Z11.51 Encounter for screening for human Michael Waterman MD papillomavirus (HPV) 06/18/2019 R00.2 Palpitations Sandra Latham M.D. 06/18/2019 R06.02 Shortness of breath Sandra Latham M.D. 06/18/2019 I49.1 Atrial premature depolarization Sandra Latham M.D. 06/18/2019 I49.3 Ventricular premature depolarization Sandra Latham M.D. 06/18/2019 I10 Essential (primary) hypertension Sandra Latham M.D. 06/18/2019 I42.8 Other cardiomyopathies Sandra Latham M.D. 05/25/2019 R94.39 Abnormal result of other cardiovascular Sandra Latham M.D. function study 05/25/2019 I10 Essential (primary) hypertension Sandra [...] ischem heart dis and oth dis of Ica ECHO Schedule the circ sys 05/04/2019 R00.2 Palpitations Sandra Latham [...] Mastodynia Michael Waterman MD Plan of Treatment 07/12/2019 - Carl Desai MDE11.8 Type 2 diabetes mellitus with unspecified complicationsNew Medication:Farxiga 5 mg - 5mg once daily in the morningInstructions:1. Reduce carbohydrate to 45g or less every day. 2. Continue your current medications and supplements. 3. Start Farxiga 1/2 of a 5mg tablet daily in the morning. 4. Continue Farxiga, if tolerated. 5. Avoid Farxiga, when sick. 6. Recheck A1c is 3 months. 7. Return to this clinic in 6 months.Z68.38 Body mass index (BMI) 38.0-38.9, adult Functional Status Description No Information Available Mental Status Description No Information Available Referrals Description No Information Available
--- OUTSIDE RECORDS SUMMARY | 2019-07-13 21:03 | XMS REPORT | Continuity of Care Document ---
:1955 External Reference #:[id number] Author Name Michael Waterman MD (transmitted by agent of provider Jessica Pickard) Address [address] [place] [phone] Care Team Providers Name Role Phone Pierce Fernández MD - Family Medicine Care Team Information Owner [phone] Problems Active Problems Provider Date Disorder of [...] Patient has never smoked Smoking Status Reviewed: 07/10/19 Patient has never smoked Exercise Type/Frequency walking [...] 4 days Sandra Latham, 05/03/2019 a week [facility] Chromium Picolate One tab by mouth 4 [...] Available Vital Signs Date Vital Result Comment 07/10/2019 2:06pm Height 67.75 inches 5'7.75" Weight 251.00 lb Heart Rate 87 /min BP Systolic Sitting 152 mmHg BP Diastolic Sitting 74 mmHg Respiratory Rate 18 /min Body Temperature 98.9 F O2 % BldC Oximetry 96 % BMI (Body Mass Index) 38.4 kg/m2 06/18/2019 3:58pm Height 67.75 inches 5'7.75" Weight 250.00 lb no shoes. Heart Rate 72 /min BP Systolic Sitting 140 mmHg L arm regular cuff BP Diastolic Sitting 90 mmHg L arm regular cuff BP Systolic Standing 160 mmHg BP Diastolic Standing 90 mmHg Respiratory Rate 18 /min BMI (Body Mass Index) 38.3 kg/m2 Ejection Fraction 55-60% 04/2019 Results Test Date Facility Test Result H/L [...] Factor 4.0 CALC 0-4.4 Laboratory test 01/30/2019 [facility] Gardnerella/Yeast: SEE RESULT [address] [address] [phone] 1 NON-FASTING 2 consistent w/ previous results 3 RESULTS VERIFIED BY REPEAT ANALYSIS 4 SEE RESULT BELOW Name: FABIANA DICKINSON: [address]: Michael Waterman MD Acct: [id number] Unit: [id number] AGE: 63 Location: [facility] Re01/30/19 SEX: F Status: REG REF SPEC: [id number] ROB: 01/30/19-[address] [address]: Michael Waterman MD REQ: [id number] RECD: 01/30/19 STATUS: COMP _ SOURCE: VAGINAL SPDESC: ORDERED: Maximus,Yeast DNA COMMENTS: [id number] Would you like to order Trichomonas Vaginalis [...] . END OF REPORT DEPARTMENT OF PATHOLOGY, [address] [place] [address] Jamal Grady M.D. Director [facility] # [id number] Procedures Date Code Description Status 05/25/2019 16152 Stress Test Completed 05/09/2019 94259 ECHO Transthoracic, Real-Time 2D With Doppler And Color Completed Flow 05/09/2019 10901 ECHO Transthoracic, Real-Time 2D With Doppler And Color Completed Flow 05/04/2019 26792 EKG Tracing & Interpretation Completed 02/07/2019 [id number] Mammogram Completed 08/08/2015 [id number] Mammogram Completed Medical Devices Description No Information Available Encounters Type Date Location Provider Dx Diagnosis Office Visit 06/18/2019 [facility] Sandra Latham M.D. R00.2 Palpitations 3:20p [facility] R06.02 Shortness of breath I49.1 Atrial premature depolarization I49.3 Ventricular premature depolarization I10 Essential (primary) hypertension I42.8 Other cardiomyopathies Office Visit 05/04/2019 9:40a [facility] Sandra Latham, R00.2 Palpitations Of [facility] [facility] [place] R06.02 Shortness of breath E11.8 Type 2 diabetes mellitus with unspecified complications Z82.49 Family hx of ischem heart dis and oth dis of the circ sys R06.01 Orthopnea Office Visit 01/30/2019 2:00p [facility] Michael Waterman, Z12.31 Encntr screen [facility] [place] mammogram for [place] malignant neoplasm of breast N94.11 Superficial (introital) dyspareunia N64.4 Mastodynia Assessments Date Code Description Provider 07/10/2019 Z01.419 Encounter for gynecological examination Michael Waterman MD (general) (routine) without abnormal findings 06/18/2019 R00.2 Palpitations Sandra Latham M.D. 06/18/2019 [...] Mastodynia Michael Waterman MD Plan of Treatment 07/10/2019 - Michael Waterman MDZ01.419 Encounter for gynecological examination ( general) (routine) without abnormal findingsNew Labs:Cytology, Ordered: Follow up:Plan Annual Tax Revenue Officer/sooner if needed Functional Status Description No Information Available Mental Status Description No Information Available Referrals Description No Information Available
--- NOTE | 2019-07-13 21:44 | UC ---
UC General HPI - HPI Summary HPI Summary: 63-year-old woman comes in with a chief complaint of right flank pain. This started couple days ago. Radiates to the right of her lumbar spine. Pain is worse with twisting turning bending. No dysuria no fevers no chills no rash. Denies any abdominal pain. Patient reports 3 weeks ago she was bit by a tick on her back. No bull's-eye rash. About 2 weeks ago she started with left hip pain. Pains worse with any kind of ambulation. Pain is in the left hip joint. No loss of strength or sensation. No specific trauma. - History of Current Complaint Chief Complaint: UCBackPain Stated Complaint: RIGHT FLANK PAIN Time Seen by Provider: 07/13/19 21:14 Pain Intensity: 10 - Allergy/Home Medications Allergies/Adverse Reactions: Allergies Allergy/AdvReac Type Severity Reaction Status Date / Time bacitracin Allergy Rash Verified 07/13/19 21:15 [From Neosporin (ror-[id number])] latex Allergy Rash Verified 07/13/19 21:15 neomycin Allergy Rash Verified 07/13/19 21:15 [From Neosporin (ozu-zfd-hgidt)] polymyxin B Allergy Rash Verified 07/13/19 21:15 [From Neosporin (hgy-knd-ujeix)] Sulfa (Sulfonamide Allergy swelling, Verified 07/13/19 21:15 Antibiotics) gi distress novacaine Allergy Rash Uncoded 07/13/19 21:15 Home Medications: Home Medications Dapagliflozin Propanediol [Farxiga] 07/13/19 [History Confirmed 07/13/19] dilTIAZem HCl [Cartia Xt] 07/13/19 [History] PMH/Surg Hx/FS Hx/Imm Hx Previously Healthy: Yes Cardiovascular History: Hypertension - Surgical History Surgical History: Yes Surgery Procedure, Year, and Place: ARTHROSCOPIC BOTH KNEES,2007 & 2009,2010- ABLATION LEFT LEG, R BREAST MARKER, TONSILLECTOMY - Family History Known Family History: Positive: None, Other - Pt denies any relevant family history. - Social History Alcohol Use: None Substance Use Type: None Smoking Status (MU): Never Smoked Tobacco Have You Smoked in the Last Year: No - Immunization History Most Recent Influenza Vaccination: never Most Recent Tetanus Shot: unsure Most Recent Pneumonia Vaccination: has not had Review of Systems All Other Systems Reviewed And Are Negative: Yes Constitutional: Positive: Other - see hpi Skin: Positive: Negative Eyes: Positive: Negative ENT: Positive: Negative Respiratory: Positive: Negative Cardiovascular: Positive: Negative Gastrointestinal: Positive: Other - see hpi Genitourinary: Negative: Dysuria, Hematuria, Frequency, Urgency Motor: Positive: Other - see hpi Neurovascular: Positive: Negative Musculoskeletal: Positive: Other: - see hpi Neurological: Positive: Negative Psychological: Positive: Negative Is Patient Immunocompromised?: No Physical Exam Triage Information Reviewed: Yes Appearance: Well-Appearing, Well-Nourished, Pain Distress - mild with rom Vital Signs: Initial Vital Signs Temp 99.1 F 07/13/19 21:06 Pulse 95 07/13/19 21:06 Resp 20 07/13/19 21:06 Pulse Ox 99 07/13/19 21:06 Vital Signs Reviewed: Yes Eye Exam: Normal Eyes: Positive: Conjunctiva Clear Neck: Positive: Supple Respiratory: Positive: Lungs clear, Normal breath sounds, No respiratory distress Cardiovascular: Positive: RRR Abdomen Description: Positive: Nontender, Soft. Negative: CVA Tenderness (R), CVA Tenderness (L) Bowel Sounds: Positive: Present Musculoskeletal: Positive: Other: - When I palpate the right of the lumbar spine patient reports that is where the pain is however my palpation does not increase her pain. When she twists and bends that does increase the pain. She is also mildly tender to palpation over the left greater trochanter. Both of her legs have full strength full range of motion normal sensation. The pain to the right upper lumbar spine does become worse with hip flexion on the left side and right side. Neurological: Positive: Alert Psychological: Positive: Normal Response To Family Skin Exam: Normal Course/Dx - Course Course Of Treatment: For the tick bite 3 weeks ago in the left hip pain we have drawn a Lyme screen. I discussed the x-rays with the patient. I do not see any fracture radiologist reading is pending. Discussed the urinalysis there is some protein in blood in their there is no leukocytes. Patient's back pain is worse with twisting turning bending it's better with rest and not moving. She has no abdominal pain. At this time her right flank and right lumbar pain is consistent with musculoskeletal pain. I recommended anti-inflammatories such as ibuprofen which the patient is reluctant to take because of her hypertension and also Flexeril when necessary. I did discuss with her if the pain started coming around into the abdomen or if there is any worsening or any other concerns she does not get reevaluated. - Diagnoses Provider Diagnosis: Low back pain, Right flank pain, Left hip pain, Tick bite Discharge ED - Sign-Out/Discharge Documenting (check all that apply): Patient Departure All imaging exams completed and their final reports reviewed: No - Discharge Plan Condition: Stable Disposition: HOME Patient Education Materials: Tick Bite (ED), Acute Low Back Pain (ED), Flank Pain (ED), Hip Pain (ED) Referrals: Pierce Fernández MD [Primary Care Provider] - - Billing Disposition and Condition Condition: STABLE Disposition: Home
[2019-07-13] MEDS ORDERED: Cyclobenzaprine TAB* 10 MG PO ONE (22:03)
--- NOTE | 2019-07-14 07:35 | UC ---
- Progress Note Progress Note: Reviewed Dr. Mendez's interprestation of hip xray: mild osteoarthritis. No change based on report. Course/Dx - Diagnoses Provider Diagnoses: Low back pain, Right flank pain, Left hip pain, Tick bite Discharge ED - Sign-Out/Discharge Documenting (check all that apply): Patient Departure All imaging exams completed and their final reports reviewed: Yes - Discharge Plan Condition: Stable Disposition: HOME Prescriptions: Cyclobenzaprine TAB* [Flexeril 10 MG TAB*] 10 mg PO TID PRN #15 tab MDD 3 PRN Reason: Pain - Moderate Patient Education Materials: Tick Bite (ED), Acute Low Back Pain (ED), Flank Pain (ED), Hip Pain (ED) Referrals: Pierce Fernández MD [Primary Care Provider] - - Billing Disposition and Condition Condition: STABLE Disposition: Home
== END 2019-07-13 22:25 | disposition home or self-care (01) ==
LOC: UCEAST 20:55
DX: M54.5 Low back pain (principal); R10.9 Unspecified abdominal pain; M25.552 Pain in left hip; S30.860A Insect bite (nonvenomous) of lower back and pelvis, initial encounter; W57.XXXA Bitten or stung by nonvenomous insect and other nonvenomous arthropods, initial encounter; Y92.9 Unspecified place or not applicable; I10 Essential (primary) hypertension; Z88.2 Allergy status to sulfonamides
CPT/HCPCS: 36415; 81003; 86618; 99212; A9270-GY; G0463

== ENCOUNTER 2019-08-19 01:14 | Emergency (ER) | payer BC ==
[2019-08-19 01:59] VITALS: BP 183/88
--- NOTE | 2019-08-19 02:12 | ED ---
Lower Extremity - HPI Summary HPI Summary: 63 year old female presents with right groin pain for the past two months. she denies any injury. states was seen at and had negative xray except for arthritis. she denies any numbness or tingling. no weakness. no back pain. states that only has pain when tries to walk. feels like pulling sensation. no loss of bowel or bladder. no saddle anaesthesia. no fevers. states now has occasionally back pain on right side. states take flexeril at night which helps a little. states pain is worst at night as has to ambulate to bathroom multiple times a night. states tried to follow up with primary but had to wait to long. has been following up with PT which has been helping. - History of Current Complaint Chief Complaint: EDHipPelvisInjury Stated Complaint: SENSE SEP 1 CANT PUT WEIGHT ON FOOT, CANT BEAR IT Time Seen by Provider: 08/19/19 01:49 Pain Intensity: 10 - Allergies/Home Medications Allergies/Adverse Reactions: Allergies Allergy/AdvReac Type Severity Reaction Status Date / Time bacitracin Allergy Rash Verified 07/13/19 21:15 [From Neosporin ([id number]-rfg-[id number])] latex Allergy Rash Verified 07/13/19 21:15 neomycin Allergy Rash Verified 07/13/19 21:15 [From Neosporin ([id number]-qkp-[id number])] polymyxin B Allergy Rash Verified 07/13/19 21:15 [From Neosporin ([id number]-rpj-kxstt)] Sulfa (Sulfonamide Allergy swelling, Verified 07/13/19 21:15 Antibiotics) gi distress novacaine Allergy Rash Uncoded 07/13/19 21:15 PMH/Surg Hx/FS Hx/Imm Hx Endocrine/Hematology History: Reports: Hx Diabetes - TYPE II, Other Endocrine/ Hematological Disorders - hx leukemia Cardiovascular History: Reports: Hx Hypertension Denies: Hx Cardiac Arrest, Hx Pacemaker/ICD GI History: Reports: Hx Irritable Bowel - "SLOW DIGESTION", Other GI Disorders - DIVERTICULITIS C-T SCAN DONE 05/17 History: Reports: Hx Kidney Infection - AT AGE 16 Denies: Hx Dialysis, Hx Renal Disease Musculoskeletal History: Reports: Hx Arthritis, Hx Bursitis - LEFT SHOULDER CORTISONE INJECTION, DONE 07/04/18, Other Musculoskeletal History - LEFT HIP PAIN , SLIGHT SCOLOSIS AND A SHORT LEG. 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 - Social History Alcohol Use: None Substance Use Type: Reports: None Smoking Status (MU): Never Smoked Tobacco Have You Smoked in the Last Year: No Review of Systems Negative: Fever Negative: Chest Pain Negative: Shortness Of Breath Positive: Myalgia - left hip pain All Other Systems Reviewed And Are Negative: Yes Physical Exam Triage Information Reviewed: Yes Vital Signs On Initial Exam: Initial Vitals Temp Pulse Resp BP Pulse Ox 99.5 F 91 20 177/78 94 08/19/19 01:20 08/19/19 01:20 08/19/19 01:20 08/19/19 01:20 08/19/19 01:20 Vital Signs Reviewed: Yes Appearance: Positive: Well-Appearing Skin: Positive: Warm, Dry Head/Face: Positive: Normal Head/Face Inspection Eyes: Positive: Normal, Conjunctiva Clear ENT: Positive: Pharynx normal Respiratory/Lung Sounds: Positive: Clear to Auscultation, Breath Sounds Present Cardiovascular: Positive: Normal, RRR Musculoskeletal: Positive: Strength/ROM Intact - left leg, Other - tenderness left groin, neg JARED test, nontender back, neg SLR, sensation grossly intact, good pulses, nontender hip and SI joint Neurological: Positive: Normal Psychiatric: Positive: Normal Procedures - Sedation Patient Received Moderate/Deep Sedation with Procedure: No Diagnostics - Vital Signs Vital Signs Temp Pulse Resp BP Pulse Ox 08/19/19 01:45 94 183/88 97 08/19/19 01:44 96 91 08/19/19 01:20 99.5 F 91 20 177/78 94 - Laboratory Lab Statement: Any lab studies that have been ordered have been reviewed, and results considered in the medical decision making process. Lower Extremity Course/Dx - Course Course Of Treatment: 63 year old female presents with right groin pain for the past two months. she denies any injury. states was seen at and had negative xray except for arthritis. she denies any numbness or tingling. no weakness. no back pain. states that only has pain when tries to walk. feels like pulling sensation. no loss of bowel or bladder. no saddle anaesthesia. no fevers. states now has occasionally back pain on right side. states take flexeril at night which helps a little. states pain is worst at night as has to ambulate to bathroom multiple times a night. states tried to follow up with primary but had to wait to long. has been following up with PT which has been helping. on exam tenderness right groin, nontender right hip, neg JARED test. neurovascular intact. discussed could be pulled groin muscle. patient is requesting note to use entrance for pool. discussed should use flexeril more frequently and if that is not working to use robaxin. patient understand and agrees with plan. - Diagnoses Differential Diagnosis/HQI/PQRI: Positive: Fracture (Closed), Sprain, Strain Provider Diagnoses: Left hip pain Discharge ED - Sign-Out/Discharge Documenting (check all that apply): Patient Departure - Discharge Plan Condition: Good Disposition: HOME Prescriptions: Methocarbamol TAB* [Robaxin 500 MG TAB*] 750 mg PO TID PRN #21 tab PRN Reason: Pain - Severe Patient Education Materials: Groin Pain (ED) Forms: *Gen. Provider Communication Referrals: Pierce Fernández MD [Primary Care Provider] - [facility] [Outside] Gallito Allen MD [Medical Doctor] - Additional Instructions: take flexeril three times a day, if no working stop and start robaxin follow up with ortho A referral was given for the number to help you get a new primary if desired start pool exercises apply heat and stretch Return to ED if develop any new or worsening symptoms - Billing Disposition and Condition Condition: GOOD Disposition: Home
== END 2019-08-19 02:24 | disposition home or self-care (01) ==
LOC: ED 01:14
DX: M25.552 Pain in left hip (principal); Z88.2 Allergy status to sulfonamides; E11.9 Type 2 diabetes mellitus without complications; I10 Essential (primary) hypertension

== ENCOUNTER 2019-11-26 16:33 | Observation (INO) | payer BC ==
--- OUTSIDE RECORDS SUMMARY | 2019-11-26 17:24 | XMS REPORT | Continuity of Care Document ---
:1955 External Reference #:[id number] Author Name Oliva Steen M.D. 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 Onset: region and thigh Hypertensive left ventricular hypertrophy Sandra Latham M.D. [...] Use Denies Drug Use Smoking Status Reviewed: 10/12/19 Patient has never smoked Exercise Type/Frequency walking [...] Cardizem CD 1 by mouth every 30caps Sandra Latham, 05/25/2019 120mg Caps day M.D. ER 24HR Solgar 1000mcg B-12 Sublingual 4 Sandra Latham, 05/03/2019 days a week M.D. Chromium Picolate [...] days a week Pot 198MG History Medications Biotin 5000mcg One tab by mouth 4 Sandra Latham M.D. 05/04/2019 - 2018 days a week Vitamin C 100-MG one tab by mouth 4 Unknown 05/03/2019 - 10/11/2019 days a week Medications Administered in Office Medication SIG Qnty Indications Ordering Provider Date Triamcinolone (Kenalog) Jakub Clinton MD 07/04/2018 Injection Immunizations Description No Information Available Vital Signs Date Vital Result Comment 10/12/2019 1:18pm Height 67.75 inches 5'7.75" Weight 243.00 lb Heart Rate 89 /min BP Systolic 160 mmHg BP Diastolic 100 mmHg Respiratory Rate 18 /min Body Temperature 98.8 F Pain Level 10 BMI (Body Mass Index) 37.2 kg/m2 07/12/2019 12:52pm Height 67.75 inches 5'7.75" Weight 254.00 lb w/ shoes Heart Rate 98 /min BP Systolic Sitting 171 mmHg BP Diastolic Sitting 87 mmHg BMI (Body Mass Index) 38.9 kg/m2 Results Test Acquired Date Facility Test Result H/L Range Note Laboratory test 07/10/2019 [facility] Cytology SEE RESULT [address] [place] [id number] [phone] Comprehensive 05/01/2019 N2N/CCD Import Sodium 139 mEq/L [...] 0-50 HDL Risk Factor 4.0 CALC 0-4.4 1 SEE RESULT BELOW Name: FABIANA DICKINSON : [address]: Michael Waterman MD Acct: [id number] Unit: [id number] AGE: 63 Location: [facility] Re07/10/19 SEX: F Status: REG REF SPEC: [id number] ROB: 07/10/19-1502 [facility] DR: Michael Waterman MD REQ: [id number] RECD: 07/10/19 STATUS: SOUT _ ORDERED: TP IMAGE ANALYS, HPV/Thin Prep, HPV 16/18 GENE COMMENTS: [id number] Negative for Intraepithelial lesion or Malignancy Date [...] was evaluated with the assistance of the Astro Test Imaging System. Due to cytologic findings at the bakery manager microscope, comprehensive manual rescreening by a Experience Designer may be required. The Pap Smear is [...] years. END OF REPORT DEPARTMENT OF PATHOLOGY, [address] [place] [address] Jamal Grady M.D. Director [facility] # [id number] 2 NON-FASTING 3 consistent w/ previous results 4 RESULTS VERIFIED BY REPEAT ANALYSIS Procedures Date Code Description Status 05/25/2019 00423 Stress Test Completed 05/09/2019 33174 ECHO Transthoracic, Real-Time 2D With Doppler And Color Completed Flow 05/09/2019 65488 ECHO Transthoracic, Real-Time 2D With Doppler And Color Completed Flow 05/04/2019 96846 EKG Tracing & Interpretation Completed 02/07/2019 [id number] Mammogram Completed 08/08/2015 [id number] Mammogram Completed Medical Devices Description No Information Available Encounters Type Date Location Provider Dx Diagnosis Office Visit 07/12/2019 [facility] Carl Desai MD E11.8 Type 2 diabetes 1:00p [facility] mellitus with unspecified complications Z68.38 Body mass index (BMI) 38.0-38.9, adult Office Visit 06/18/2019 3:20p [facility] Sandra Latham, R00.2 [facility] M.D. R06.02 Shortness of breath I49.1 Atrial premature depolarization I49.3 Ventricular premature depolarization I10 Essential (primary) hypertension I42.8 Other cardiomyopathies Office Visit 05/04/2019 9:40a [facility] Sandra Latham R00.2 [facility] AT [facility] M.D. R06.02 Shortness of breath E11.8 Type 2 diabetes mellitus with unspecified complications Z82.49 Family hx of ischem heart dis and oth dis of the circ sys R06.01 Orthopnea Assessments Date Code Description Provider 10/12/2019 M25.552 Pain in left hip Oliva Steen M.D. 10/12/2019 M16.12 Unilateral primary osteoarthritis, left hip Oliva Steen M.D. 10/12/2019 Z68.38 Body mass index (BMI) 38.0-38.9, adult Oliva Steen M.D. 07/12/2019 E11.8 Type 2 diabetes mellitus with [...] diseases 05/04/2019 R06.01 Orthopnea Sandra Latham M.D. Plan of Treatment 10/12/2019 - Oliva Steen M.D.M25.552 Pain in left hipFollow up:Follow up: None [id number] Unilateral primary osteoarthritis, left hipZ68.38 Body mass index (BMI) 38.0-38.9, adult Functional Status Description No Information Available Mental Status Description No Information Available Referrals Description No Information Available
--- NOTE | 2019-11-26 18:29 | ED ---
Shortness of Breath - HPI Summary HPI Summary: This patient is a 63 year old F presenting to ED with a chief complaint of shortness of breath since a few months ago. Patient denies fever. Patient had blood drawn this afternoon by her family care physician (Dr. Fernández) for a routine appointment, and they noted a hemoglobin of 6 rather than 12, per patient. Patient's bloodwork from earlier today are not uploaded into our system , however a report faxed over revealed the patient's bloodwork: hematocrit: 21.6 hemoglobin: 6.2, platelets:159. In 2018, patient was diagnosed with diverticulitis. On her CT scan, the patient reports there was suspicious growths on her adrenal glands. Patient reports that for the past year she has been having hip pain. After several visits to orthopedics, patient was sent for XRs and MRIs. She had a workup recently and was diagnosed with multiple myeloma four days ago. She has not had any biopsies yet. Patient has a history of childhood leukemia. She is scheduled to see Dr. [place], oncologist. The patient rates the pain 10/10 in severity. Symptoms aggravated by nothing. Symptoms alleviated by nothing. Patient denies taking any medications. Patients medication as entered in EMR reviewed this visit. - History of Current Complaint Chief Complaint: EDGeneral Time Seen by Provider: 11/26/19 18:18 Hx Obtained From: Patient Onset/Duration: Gradual Onset, Lasting Weeks - A few months, Still Present Timing: Constant Current Severity: Mild Dyspnea At: Rest Alleviating Factors: Nothing Associated Signs & Symptoms: Negative - Fever - Allergy/Home Medications Allergies/Adverse Reactions: Allergies Allergy/AdvReac Type Severity Reaction Status Date / Time bacitracin Allergy Rash Verified 11/26/19 17:01 [From Neosporin (lkl-sml-watra)] latex Allergy Rash Verified 11/26/19 17:01 neomycin Allergy Rash Verified 11/26/19 17:01 [From Neosporin (ryw-eis-esvtb)] polymyxin B Allergy Rash Verified 11/26/19 17:01 [From Neosporin (nsj-die-gkoih)] Sulfa (Sulfonamide Allergy swelling, Verified 11/26/19 17:01 Antibiotics) gi distress glipizide AdvReac Unknown Verified 11/27/19 11:34 Reaction Details metformin AdvReac Unknown Verified 11/27/19 11:34 Reaction Details novacaine Allergy Rash Uncoded 11/26/19 17:01 PMH/Surg Hx/FS Hx/Imm Hx Endocrine/Hematology History: Reports: Hx Diabetes - TYPE II, Other Endocrine/ Hematological Disorders - hx leukemia Cardiovascular History: Reports: Hx Hypertension Denies: Hx Cardiac Arrest, Hx Pacemaker/ICD GI History: Reports: Hx Irritable Bowel - "SLOW DIGESTION", Other GI Disorders - DIVERTICULITIS C-T SCAN DONE 05/17 History: Reports: Hx Kidney Infection - AT AGE 16 Denies: Hx Dialysis, Hx Renal Disease Musculoskeletal History: Reports: Hx Arthritis, Hx Bursitis - LEFT SHOULDER CORTISONE INJECTION, DONE 07/04/18, Other Musculoskeletal History - LEFT HIP PAIN , SLIGHT SCOLOSIS AND A SHORT LEG. 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 Multiple myeloma Hx Chemotherapy: No Hx Radiation Therapy: No - Surgical History Surgery Procedure, Year, and Place: ARTHROSCOPIC BOTH KNEES,2006 & 2008,2009- ABLATION LEFT LEG, R BREAST MARKER, TONSILLECTOMY Hx Anesthesia Reactions: No - Immunization History Date of Tetanus Vaccine: unk Date of Influenza Vaccine: none Infectious Disease History: No Infectious Disease History: Denies: History Other Infectious Disease, Traveled Outside the [place] in Last 30 Days - Family History Known Family History: Negative: Cardiac Disease, Hypertension - Social History Alcohol Use: None Hx Substance Use: No Substance Use Type: Reports: None Hx Tobacco Use: No Smoking Status (MU): Never Smoked Tobacco Have You Smoked in the Last Year: No Review of Systems Negative: Fever Positive: Shortness Of Breath All Other Systems Reviewed And Are Negative: Yes Physical Exam Triage Information Reviewed: Yes Vital Signs On Initial Exam: Initial Vitals Temp Pulse Resp BP Pulse Ox 98.8 F 87 19 166/75 99 11/26/19 16:59 11/26/19 16:59 11/26/19 16:59 11/26/19 16:59 11/26/19 16:59 Vital Signs Reviewed: Yes Procedures - Sedation Patient Received Moderate/Deep Sedation with Procedure: No Diagnostics - Vital Signs Vital Signs Temp Pulse Resp BP Pulse Ox 11/26/19 16:59 98.8 F 87 19 166/75 99 - Laboratory Result Diagrams: 11/27/19 06:03 11/27/19 06:03 Lab Statement: Any lab studies that have been ordered have been reviewed, and results considered in the medical decision making process. Re-Evaluation - Re-Evaluation First Eval Re-Evaluation Time: 18:47 Comment: Discussed Dr. Petit's recommendations with patient. Patient agrees with plan to wait for bloodwork before admission. Course/Dx - Course Assessment/Plan: Patient will be signed out from Dr. Kamini Rousseau to Dr. Jarred Douglas at [facility] on 11/26/2019 at 1900 pending blood work and disposition. - Diagnoses Provider Diagnoses: Anemia - Physician Notifications Discussed Care of Patient With: Marquez Petit Time Discussed With Above Provider: 18:43 Instructed by Provider To: Other - Discussed patient case with Dr. Petit, hospitalist, who agrees that the patient should be admitted but also agrees that he will wait for our blood work results to come in as the patient's blood work done earlier today is not in our system. Discharge ED - Sign-Out/Discharge Documenting (check all that apply): Sign-Out Patient Signing out patient TO: Jarred Douglas - Discharge Plan Condition: Stable Disposition: ADMITTED TO [facility] - Billing Disposition and Condition Condition: STABLE Disposition: Admitted to [facility] - Attestation Statements Document Initiated by Scribe: Yes Documenting Scribe: Klaus Kyle Provider For Whom Scribe is Documenting (Include Credential): Kamini Rousseau MD Scribe Attestation: I, Klaus Kyle, scribed for Kamini Rousseau MD on 11/27/19 at 1312. Status of Scribe Document: Viewed
[2019-11-26 19:06] LABS: ABS Eosinophils 0.1 10^3/ul (0-0.6); ABS Lymphocytes 1.5 10^3/ul (1.0-4.8); ABS Monocytes 0.6 10^3/ul (0-0.8); ABS Neutrophils 3.2 10^3/ul (1.5-7.7); Eosinophil % 1.8 %; Hematocrit 19 % (35-47); Hemoglobin 6.2 g/dL (12.0-16.0); Lymphocyte % 27.7 %; Mean Corpuscular HGB Conc 32 g/dL (31-36); Mean Corpuscular Hemoglobin 28 pg (27-31); Mean Corpuscular Volume 87 fL (80-97); Nucleated Red Blood Cells % 0.2; Platelet Count 170 10^3/uL (150-450); Red Blood Count 2.23 10^6 /uL (3.70-4.87); Red Cell Distribution Width 25 % (10-15); White Blood Count 5.4 10^3/uL (3.5-10.8)
[2019-11-26 19:12] LABS: ALT 17 U/L (7-52); AST 17 U/L (13-39); Albumin 2.8 g/dL (3.2-5.2); Albumin/Globulin Ratio 0.3 (1-3); Alkaline Phosphatase 39 U/L (34-104); Anion Gap 4 mmol/L (2-11); BUN/Creatinine Ratio 11.5 (8-20); Blood Urea Nitrogen 41 mg/dL (6-24); CO2 Carbon Dioxide 25 mmol/L (22-32); Chloride 103 mmol/L (101-111); Creatine Kinase 26 U/L (10-223); EGFR African American 15.7 (>60); Globulin 8.2 g/dL (2-4); Glucose 124 mg/dL (70-100); Magnesium 1.9 mg/dL (1.9-2.7); Potassium 3.8 mmol/L (3.5-5.0); Sodium 132 mmol/L (135-145)
[2019-11-26 19:32] LABS: Polychromasia 1+
--- NOTE | 2019-11-26 20:58 | ED ---
Progress - Progress Note Progress Note: The patient is a sign-out from Dr. Kamini Rousseau MD, to Dr. Jarred Douglas MD , at change of shift at 1900 on 11/26/2019, pending lab results, possible transfusion, and likely admission. Lab results significant for anemia with hemoglobin of 6.2, hematocrit of 19, RBCs of 2.23, and platelets of 170. Patient given one unit leukocyte-reduced RBC. Dr. Bryant from the hospitalist services accepts the patient for admission. Re-Evaluation - Re-Evaluation First Eval Re-Evaluation Time: 20:30 Comment: Patient agreeable with admission. Course/Dx - Course Course Of Treatment: The patient is a sign-out from Dr. Kamini Rousseau MD, to Dr. Jarred Douglas MD, at change of shift at 1900 on 11/26/2019, pending lab results, possible transfusion, and likely admission. Lab results significant for anemia with hemoglobin of 6.2, hematocrit of 19, RBCs of 2.23, and platelets of 170. Patient given one unit leukocyte-reduced RBC. Dr. Bryant from the hospitalist services accepts the patient for admission. Patient agrees with plan. - Diagnoses Provider Diagnoses: Anemia - Provider Notifications Discussed Care Of Patient With: Louis Bryant - hospitalist Time Discussed With Above Provider: 20:20 Instructed by Provider To: Other - Dr. Bryant is aware of the patient and agrees with admission. Discharge ED - Sign-Out/Discharge Documenting (check all that apply): Patient Departure - Patient accepted for admission by Dr. Bryant., Receiving Sign-Out Receiving patient FROM: Kamini Rousseau - Patient is a sign-out from Dr. Kamini Rousseau MD, at 1900 on 11/26/2019, pending lab results, possible transfusion, and likely admission. - Discharge Plan Condition: Stable Disposition: ADMITTED TO [facility] - Billing Disposition and Condition Condition: STABLE Disposition: Admitted to [facility] - Attestation Statements Document Initiated by Scribe: Yes Documenting Scribe: Alisa Williamson Provider For Whom Scribe is Documenting (Include Credential): Dr. Jarred Douglas MD Scribe Attestation: Alisa Magallanes, scribed for Dr. Jarred Douglas MD on 11/27/19 at 0639. Scribe Documentation Reviewed: Yes Provider Attestation: The documentation as recorded by the Alisa freedman accurately reflects the service I personally performed and the decisions made by me, Dr. Jarred Douglas MD Status of Fernando Document: Viewed Procedures - Sedation Patient Received Moderate/Deep Sedation with Procedure: No
[2019-11-26 21:22] LABS: % Iron Saturation 33 % (15-55); Iron 90 ug/dL (50-212); Total Iron Binding Capacity 269 mcg/dL (250-450); Transferrin 192 mg/dL (203-362)
[2019-11-26] MEDS ORDERED: Dextrose 50% Syringe 50 ML* 25 GM/50 ML SYRINGE IV PUSH PRN (21:29)
[2019-11-26 21:36] LABS: LDH 181 U/L (140-271)
[2019-11-26 21:48] LABS: Folate 8.19 ng/mL (>3.99)
[2019-11-26] MEDS: Metoprolol Succinate XL TAB* 25 MG PO SCH (22:54)
--- NOTE | 2019-11-26 23:52 | HP ---
HISTORY AND PHYSICAL: DATE OF ADMISSION: 11/26/19 ADMITTING PROVIDER: Louis Bryant MD PRIMARY CARE PROVIDER: Dr. Fernández OUTPATIENT ORTHOPEDIC: Dr. Brock of [facility]. Plan being to establish with outpatient hosiery looper oncologist Dr. [place]. ADDITIONAL CONSULTANTS: Dr. Latham. CHIEF COMPLAINT: Progressive shortness of breath and left hip pain, both over the course of months and referred from PCP's office for hemoglobin of 6.2. HISTORY OF PRESENT ILLNESS: Ms. Gaytan is a 63-year-old female with a past medical history of diet-controlled diabetes mellitus, childhood leukemia at age 3, diverticulitis, hypertension, but weaned herself off of all meds. She has had progressive left hip pain since 2018 and in May 2019, was in her groin. It got to the point where she uses a cane and currently has about 10/10 pain with standing. She had followed up with [facility] Dr. Brock for some imaging studies on 11/22/19 four days prior to admission and had an MRI of her pelvis, which showed diffuse abnormal marrow signal with numerous bone lesions throughout the femurs, pelvis, and lower lumbar spine, this was most likely metastatic disease or multiple myeloma. She had also a bone scan same date, which showed decreased activity at the left superior acetabulum, corresponding to expansile lytic lesion seen on x-ray and MRI. Additionally, on the MRI the marrow was diffusely abnormal with numerous bone lesions in the proximal femurs, pelvis, and lower lumbosacral spine. These areas show utmost mild patchy uptake on the bone scan. Differential diagnosis still probably includes multiple myeloma and metastatic disease, the underwhelming extensive disease on the bone scan favors multiple myeloma. She followed up with Dr. Fernández and got some blood drawn today, which showed a hemoglobin 6.2 and she was referred to the [facility] emergency room. Hemoglobin was again 6.2 with hematocrit of 19 here and she has been consented for 1 unit of packed red blood cells. Her last hemoglobin was 13.1 back in July 2018. MCV is 87, RDW is elevated at 25. Her creatinine was noted to be quite elevated at 3.55 compared to 1.28 back on 06/20/19, which was also elevated from 0.April. Total protein is 11.0 with albumin of 2.8 with significant paraprotein gap all concerning for multiple myeloma. She has lost approximately 30 pounds over the last several years including 20 pounds over the last 6 months with reduced appetite and some nausea. She follows up with Dr. Latham for cardiology and she had an echocardiogram, which she reports showed a stiff heart and recently a Holter, which showed some skipping beats. She discontinued her Cartia within the last few months. She had previously tried metformin, but did not tolerate for diabetes mellitus, her last A1c was 8.8 on 06/20/19. PAST MEDICAL HISTORY: Childhood leukemia, age 3; hip pain; diet-controlled diabetes mellitus; hypertension; suspected multiple myeloma. PAST SURGICAL HISTORY: Knee arthroplasty, tonsillectomy. She has 3 bridges in her mouth. MEDICATIONS: None. ALLERGIES: BACITRACIN, rash. LATEX, rash. NEOMYCIN, rash. POLYMYXIN, rash. SULFA, swelling and GI distress. NOVOCAIN, rash. FAMILY HISTORY: Mother of heart attack at age 50. Dad from what looks like metastatic cancer (she refers to it as "spider" cancer at age 63). Both were smokers. She had 4 brothers, 1 was killed in a car accident, 2 have very high hyperlipidemia. SOCIAL HISTORY: She is a never smoker, rare alcohol use. 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 Full code. Medical surrogate is her , Armando. REVIEW OF SYSTEMS: A complete 14-point review of systems negative except as per HPI. She denies any blood in her bowel movements. She developed constipation after she was put on diazepam. Denies orthopnea, palpitations, or chest pain. PHYSICAL EXAMINATION GENERAL APPEARANCE: No acute distress. VITAL SIGNS: Temperature 98.8, pulse rate 90, respiratory rate 16 to 20, satting 97% to 98% on room air, blood pressure initially 166/75. HEENT: Normocephalic, atraumatic. Pupils equally round and reactive to light. Extraocular motions intact. No scleral icterus. LUNGS: Clear to auscultation bilaterally with no wheezing, rales, or rhonchi. CARDIOVASCULAR: Regular rate and rhythm. There is a 2 to 3/6 systolic ejection murmur across the precordium. ABDOMEN: Soft, nontender, nondistended. No rebound. No guarding. EXTREMITIES: Warm, well perfused, trace to 1+ pitting edema bilaterally. NEUROLOGIC: Cranial nerves II through XII intact. Moving all extremities. [place] strength intact. DIAGNOSTIC STUDIES/LAB DATA: White count 5.4, hemoglobin 6.2, hematocrit 19, platelets 170. RDW as 25. MCV is 87. Sodium 132, potassium 3.8, chloride 103 , carbon dioxide 25, BUN 41, creatinine 3.55, glucose 124, magnesium 1.9. Iron studies have been added, does show iron of 90, iron sat of 33, ferritin is pending, B12 and folate pending. Total bili is 0.6, AST 17, ALT 17, alk phos 39. LDH pending. Albumin 2.8. Lipase 32. Imaging: None except for outpatient from the [facility]. She had followed up with [facility] Dr. Brock for some imaging studies on 11/22/19 four days prior to admission and had an MRI of her pelvis, which showed diffuse abnormal marrow signal with numerous bone lesions throughout the femurs, pelvis, and lower lumbar spine, this was most likely metastatic disease or multiple myeloma. She had also a bone scan same date, which showed decreased activity at the left superior acetabulum, corresponding to expansile lytic lesion seen on x-ray and MRI. Additionally, on the MRI the marrow was diffusely abnormal with numerous bone lesions in the proximal femurs , pelvis, and lower lumbosacral spine. These areas show utmost mild patchy uptake on the bone scan. Differential diagnosis still probably includes multiple myeloma and metastatic disease, the underwhelming extensive disease on the bone scan favors multiple myeloma. ASSESSMENT AND PLAN: Ms. Gaytan is a 63-year-old female presenting with acute kidney injury, severe anemia, and multiple bone abnormalities on recent MRI and bone scan all concerning for multiple myeloma. She is getting for her severe anemia, suspected secondary to multiple myeloma, hemoglobin 6.2, she is being consented for 1 unit of packed red blood cells. Repeat CBC daily. She denies any gastrointestinal source of bleeding. She has had a Cologuard but never colonoscopy. She does have some weight loss, unintentional 20 pounds over the last several months. Suspected multiple myeloma with acute kidney injury versus progressive chronic kidney disease with creatinine 3.55. We will get a urine electrolytes, urine sodium, and urine creatinine p.r.n., bladder scans as necessary. She denies any change in her urine color. She has a paraprotein gap with total protein of 11, albumin 2.8 with a gap of 8.2. I am adding on a serum protein electrophoresis, serum free light chains and urine light chains as well, adding on LDH and beta-2 microglobulin. Hematology/oncology consult in the morning would be recommended. She does have some discs from SOS and those can hopefully be scanned in to the chart for further evaluation. For her diabetes mellitus. I am adding on a repeat A1c, it was not well controlled back in May and she since lost some weight unintentionally. I will add on glucose checks q.a.c., h.s., Lispro sliding scale. DVT prophylaxis. SCDs given her anemia. She is full code. Medical surrogate is her , Armando. [id number]/[facility] #: [id number] GERMÁN
[2019-11-27] MEDS ORDERED: traMADol TAB* 50 MG PO PRN (02:54)
[2019-11-27 06:25] LABS: ABS Eosinophils 0.1 10^3/ul (0-0.6); ABS Lymphocytes 1.6 10^3/ul (1.0-4.8); ABS Monocytes 0.4 10^3/ul (0-0.8); ABS Neutrophils 3.2 10^3/ul (1.5-7.7); Eosinophil % 1.8 %; Hematocrit 22 % (35-47); Hemoglobin 7.4 g/dL (12.0-16.0); Lymphocyte % 29.7 %; Mean Corpuscular HGB Conc 34 g/dL (31-36); Mean Corpuscular Hemoglobin 29 pg (27-31); Mean Corpuscular Volume 86 fL (80-97); Mean Platelet Volume 7.1 fL (7.4-10.4); Nucleated Red Blood Cells % 0.1; Platelet Count 153 10^3/uL (150-450); Red Cell Distribution Width 22 % (10-15); White Blood Count 5.3 10^3/uL (3.5-10.8)
[2019-11-27 06:53] LABS: BUN/Creatinine Ratio 11.6 (8-20); Calcium 8.6 mg/dL (8.6-10.3); EGFR African American 15.8 (>60); EGFR Non-African American 13.1 (>60); Potassium 3.5 mmol/L (3.5-5.0)
[2019-11-27] MEDS: Insulin LISPRO* 1 UNITS UNIT SUBCUT SCH ×2 (08:57→12:21)
[2019-11-27] MEDS: Metoprolol Succinate XL TAB* 25 MG PO SCH (09:08)
--- NOTE | 2019-11-27 10:56 | ECHO ---
*[facility]* [place] [address] Fax #: [phone] Transthoracic Echocardiogram Patient: Fabiana Gaytan : 1955 Study Date: 11/27/2019 Age: 63 Gender: F HR: 82 bpm Height: 68 in /172.7 cm BSA: 2.3 m^2 Weight: 234.5 lb /106.6 kg BMI: 35.7 kg/m^2 *Food Scientist: Noy Fox RDCS RN *Referring Physician: * Louis Bryant *Reading Physician: * Zoran Li MD Indications: Congestive Heart Failure. History: Murmur. Anemia. Suspected multiple myeloma. Risk factors: Hypertension. Diabetes mellitus. Obese. Conclusions Summary: - Left ventricle: The cavity size is normal. Wall thickness is mildly to moderately increased. Systolic function is normal. The estimated ejection fraction is 55-60%. Wall motion is normal; there are no regional wall motion abnormalities. Doppler parameters are consistent with abnormal left ventricular relaxation (grade 1 diastolic dysfunction). - Left atrium: The atrium is moderately dilated. - Right atrium: The atrium is mildly to moderately dilated. - Mitral valve: There is mild regurgitation. - Aortic valve: The findings are consistent with mild stenosis. There is trace regurgitation. The peak systolic velocity is 2.87 m/sec. The mean systolic gradient is 19.0 mm Hg. The peak systolic gradient is 33.0 mm Hg. The LVOT to aortic valve VTI ratio is 0.65. The valve area by the velocity-time integral method is 1.85 cm^2. The ratio of LVOT to aortic valve peak velocity is 0.63. The valve area by the peak velocity method is 1.79 cm^2. - Tricuspid valve: There is mild-moderate regurgitation. - Pulmonary arteries: Systolic pressure is severely increased, estimated to be 61 mm Hg. - C/t 05/09/2019, although report mentioned no aortic stenosis, the hemodynamics are consistent with mild aortic stenosis then. Tricuspid regurgitation was trace then. PHTN at 38 mmHg then. Study data: Transthoracic echocardiogram. Procedure: Transthoracic echocardiography was performed. Image quality was fair. The study was technically limited due to body habitus. The patient did not want to have Definity used to enhance imaging. Complete 2D, spectral Doppler, and color flow Doppler. Location: Bedside. Patient status: Inpatient. Patient room number: 412-01. Rhythm: Normal sinus rhythm. Findings Left ventricle: The cavity size is normal. Wall thickness is mildly to moderately increased. Systolic function is normal. The estimated ejection fraction is 55-60%. Wall motion is normal; there are no regional wall motion abnormalities. Doppler parameters are consistent with abnormal left ventricular relaxation (grade 1 diastolic dysfunction). Right ventricle: The cavity size is mildly dilated. Systolic function is low normal. Left atrium: The atrium is moderately dilated. Right atrium: The atrium is mildly to moderately dilated. Mitral valve: The leaflets are mildly thickened. There is no evidence of stenosis. There is mild regurgitation. Aortic valve: The annulus is calcified. The valve is probably trileaflet. The leaflets are mildly thickened. The findings are consistent with mild stenosis. There is trace regurgitation. Tricuspid valve: The valve is structurally normal. There is no evidence of stenosis. There is mild-moderate regurgitation. Pulmonic valve: Not well visualized. Aorta: Aortic root: The aortic root is not dilated. Ascending aorta: The ascending aorta is not dilated. Aortic arch: The aortic arch is not dilated. Pericardium: There is no significant pericardial effusion. Pulmonary arteries: Not well visualized. Systolic pressure is severely increased, estimated to be 61 mm Hg. Systemic veins: Inferior vena cava: The vessel is dilated. There is (< 50%) respiratory change in the IVC dimension. Measurements Left ventricle Value Ref Aortic valve Value Ref SERENA, LAX 5.0 cm 3.8 - Peak v, S 2.87 m/sec ----- 5.2 VTI, S 62.3 cm ----- ESD, LAX 3.4 cm 2.2 - Mean grad, S 19.0 mm Hg ----- 3.5 Peak grad, S 33.0 mm Hg ----- FS, LAX 32 % 27 - 45 LVOT/AV, VTI ratio 0.65 ----- PW, ED (H) 1.3 cm 0.6 - OLAMIDE, VTI 1.85 cm^2 ----- 0.9 OLAMIDE, Vmax 1.79 cm^2 ----- IVS/PW, ED 0.97 -------- E', lat trenton, TDI 10.4 cm/sec >=10.0 Mitral valve Value Ref E/e', lat trent[place], TDI 14 -------- Peak E 1.42 m/sec ----- E', med trenton, TDI 8.0 cm/sec >=7.0 Peak A 0.95 m/sec --- -- E/e', med trenton, TDI 18 -------- Decel time 161 ms ----- E', avg, TDI 9.2 cm/sec -------- Peak grad, D 8.1 mm Hg ----- E/e', avg, TDI (H) 16 <=14 Peak E/A ratio 1.49 --- -- LVOT Value Ref Pulmonic valve Value Ref Diam, S 1.91 cm -------- Peak v, S 1.29 m/sec ----- Area 2.9 cm^2 -------- Peak grad, S 6.6 mm Hg ----- Peak timoteo, S 1.8 m/sec -------- VTI, S 40.3 cm -------- Tricuspid valve Value Ref Peak grad, S 13 mm Hg -------- TR peak v (H) 3.4 m/sec <=2.8 Mean grad, S 8 mm Hg -------- Peak RV-RA grad, S 46 mm Hg ----- Ventricular septum Value Ref Aortic root Value Ref IVS, ED (H) 1.3 cm 0.6 - Root diam 2.7 cm <4.4 0.9 Ascending aorta Value Ref Right ventricle Value Ref AAo AP diam, S 2.6 cm ----- SERENA, LAX 3.0 cm -------- SERENA minor ax, A4C (H) 4.5 cm 1.9 - Aortic arch Value Ref mid 3.5 Arch diam 2.3 cm ----- Pressure, S 61 mm Hg -------- Decending aorta Value Ref Left atrium Value Ref Darnell peak timoteo 0.95 m/sec ----- LA ID 4.2 cm -------- SI dim ES, LAX 4.2 cm -------- Pulmonary artery Value Ref ML dim, A4C 5.4 cm -------- Pressure, S 54.4 mm Hg ----- SI dim, A4C 5.5 cm -------- Vol, ES, 2-p 97 ml -------- Inferior vena cava Value Ref Vol/bsa, ES, 2-p (H) 42 ml/m^2 16 - 34 Diam 2.9 cm ----- Right atrium Value Ref ML dim, ES, A4C (H) 5.2 cm 2.6 - 4.4 SI dim, ES, A4C (H) 5.9 cm 3.4 - 5.3 Estimated RAP 15 mm Hg -------- Legend: (L) and (H) megha values outside specified reference range. Prepared and electronically signed by Zoran Li MD 11/27/2019 10:56
[2019-11-27] MEDS ORDERED: Lorazepam PYXIS KEY PRN (11:30)
[2019-11-27] MEDS ORDERED: LORazepam INJ* 2 MG/ML 1 ML VIAL IV PUSH ONE (11:30)
--- NOTE | 2019-11-27 12:09 | PROCNOTE ---
Hematology/Oncology Procedure Date of Procedure: 11/27/19 Pre-Op Diagnosis: anemia, suspected myeloma Post-Op Diagnosis: same as above Procedure(s): Bone marrow biopsy and aspiration Surgeon(s)/Proceduralist: Juan Horton PA-C Anesthesia: 2% lidocaine - 8ml Estimated Blood Loss: <5ml Findings: aspirate and core sample collected without complication Specimen(s)/Culture(s) Description: 10ml bone marrow aspirate and ~1.5cm core biopsy - processed and sent to the lab Complications: None
[2019-11-27 14:38] VITALS: BP 164/94
--- NOTE | 2019-11-28 16:14 | DS ---
Resident Discharge Summary Discharge Summary: Date of Admission: 11/26/19 Date of Discharge: 11/27/19 Admitting MD: Louis Bryant MD Attending MD: Bayron Chu MD Primary Care Physician: Pierce Fernández MD Resident: Mila Rutledge MD Discharge Medications Medication Instructions Recorded Confirmed Type Metoprolol Succinate XL TAB* 25 mg PO DAILY #30 tab.xl 11/27/19 Rx [Toprol XL TAB*] Tramadol HCl 50 mg PO BID PRN #14 tablet MDD 2 11/27/19 Rx Disposition: Home Condition: Stable Primary Diagnosis: multiple myeloma (highly suspected) Secondary Diagnosis: anemia Type 2 diabetes Hypertension diverticulosis history of leukemia, age 3 mitral regurgitation (moderate) Diagnostic Imaging: Bone scan and MRI prior to admission showed lytic lesions in LT hip, other areas of skeleton Echocardiogram showed EF 55-60%, mild LVH, mild-moderate mitral regurgitation Pertinent Laboratory Results: Laboratory Tests 11/26/19 11/26/19 11/26/19 18:40 18:40 18:40 WBC 5.4 Hgb 6.2 L* Hct 19 L Plt Count 170 Sodium Creatinine Hemoglobin A1c 6.0 H Iron 90 TIBC 269 % Saturation 33 B-Natriuretic Peptide Total Protein 11.0 H Albumin 2.8 L Globulin 8.2 H Vitamin B12 767 11/26/19 11/27/19 11/27/19 18:40 06:03 06:03 WBC Hgb 7.4 L Hct 22 L Plt Count Sodium 134 L Creatinine 3.53 H Hemoglobin A1c Iron TIBC % Saturation B-Natriuretic Peptide 479 H Total Protein Albumin Globulin Vitamin B12 Hospital Course: 63 year old woman with history of hypertension presented with several month history of left hip pain, 20 lb weight loss, anemia, new onset kidney disease. She had imaging at Dr. Ford's office in [place] regarding progressive left hip pain, was found to have lytic lesion in that hip on MRI and bone scan. Further lab investigation shows normal calcium, elevated globulin. See History and physical for full presenting illness. Multiple myeloma vs other metastatic disease was suspected. Oncology consultation recommended bone marrow biopsy and outpatient follow-up. Patient received 2 units of Packed RBC transfused without incident. Procedures: bone marrow biopsy LT iliac crest Complications: none Consultations: Juan Nelson of Heme/Onc Lab tests pending on discharge: Beta 2 Microglobulin Stat Quanah Lambda Free Light Chains Stat Protein Electrophoresis Serum Stat Quanah/Lambda Light Chains Urin Stat Protein Electrophoresis Urine Stat Chromosome Hold Urgent Leukemia/Lymphoma Phenotyping Urgent Plasma Cell Prolif Disorder Urgent Bone marrow results should be available in 2-3 days. Status: observation Copy to: [facility] Follow Up Instructions: See Dr. Collier Tuesday11/30/2019. See Dr. Fernández 12/07/2019. In case of an emergency or after clinic hours, please go to your nearest Emergency Department. You may also call the [facility] multiskill operator at .
[2019-11-28 18:19] LABS: Urine Kappa Total Light Chain 3.33 mg/dL (<0.9000); Urine Kappa/Lambda Light Chain 1.11
[2019-11-28 19:02] LABS: Kappa Free Light Chain 3.84 mg/dL; Lambda Free Light Chain 1090 mg/dL
== END 2019-11-27 15:50 | disposition home or self-care (01) ==
LOC: ED 16:33 → MED 20:54
PROVIDERS: ADMIT Internal Medicine; ATTEND Internal Medicine
DX: C90.00 Multiple myeloma not having achieved remission (principal); D64.9 Anemia, unspecified; E11.9 Type 2 diabetes mellitus without complications; I10 Essential (primary) hypertension; K57.90 Diverticulosis of intestine, part unspecified, without perforation or abscess without bleeding; Z85.6 Personal history of leukemia; I34.0 Nonrheumatic mitral (valve) insufficiency; R06.02 Shortness of breath; N17.9 Acute kidney failure, unspecified; Z79.899 Other long term (current) drug therapy
CPT/HCPCS: 36415; 38222; 80048; 80053; 81479; 82232; 82550; 82607; 82746; 83036; 83540; 83550; 83615; 83690; 83735; 83880; 83883; 84155; 84156; 84165; 84166; 85025; 85060; 85097; 86850; 86900; 86901; 86922; 88184; 88187; 88188; 88189; 88271; 88305; 88311; 88313; 88342; 93306; 96374; 99283; G0378; J2060; P9040

== ENCOUNTER 2023-11-20 15:45 | Inpatient (IN) ==
[2023-11-20] MEDS: Morphine 4 MG/ML VIAL (1 ml) IV ONE (16:27)
[2023-11-20 16:43] LABS: ABS Eosinophils 0.1 10^3/uL (0.0-0.5); ABS Lymphocytes 1.7 10^3/uL (1.0-4.8); ABS Monocytes 0.7 10^3/uL (0.0-0.9); ABS Neutrophils 7.5 10^3/uL (1.5-7.6); ABS Nucleated RBC 0.01 10^3/ul; Eosinophil % 0.7 %; Hematocrit 34.4 % (35-45); Hemoglobin 11.6 g/dL (11.5-14.3); Lymphocyte % 17.4 %; Mean Corpuscular Hemoglobin 28.1 pg (27-33); Mean Corpuscular Hgb Conc 33.6 g/dL (31-36); Mean Corpuscular Volume 83.6 fL (80-97); Mean Platelet Volume 8.6 fL (7.5-11.2); Nucleated Red Blood Cells % 0.1 %/100WBC (0.0-0.8); Platelet Count 202 10^3/uL (150-450); Red Blood Count 4.11 10^6/uL (3.63-4.92); Red Cell Distribution Width 16.4 % (12-17)
[2023-11-20 17:02] LABS: Albumin 3.4 g/dL (3.2-5.2); Albumin/Globulin Ratio 0.6 (1-3); Calcium 9.8 mg/dL (8.6-10.3); Creatinine, Serum 2.87 mg/dL (0.51-0.95); Globulin 6.1 g/dL (2-4); Total Bilirubin 0.5 mg/dL (0.2-1.0); Total Protein 9.5 g/dL (6.4-8.9); eGFR CKD-EPI 17.4 (>60)
[2023-11-20] MEDS: Lactated Ringers 1000 ml BAG 1,000 ML IV ONE (17:21)
[2023-11-20] MEDS: HYDROmorphone 1 MG/1 ML SYRINGE IV SLOW PU ONE ×2 (17:52→18:12)
[2023-11-20] MEDS ORDERED: Acetaminophen IV 1 GM/100ML 1,000 MG/100 ML BAG IV PRN (18:33)
[2023-11-20] MEDS ORDERED: Dextrose 50% Syringe 50 ml 25 GM/50 ML SYRINGE IV PUSH PRN (18:34)
[2023-11-20 18:39] LABS: Rapid COVID-19 Molecular Undetected (Undetected)
[2023-11-20 18:57] LABS: Influenza A Molecular Negative (Negative); Influenza B Molecular Negative (Negative)
[2023-11-20] MEDS ORDERED: oxyCODONE SR 15 mg TAB PO SCH (21:00)
[2023-11-20] MEDS: HYDROmorphone 1 MG/1 ML SYRINGE IV SLOW PU PRN (21:31)
[2023-11-20] MEDS: Enoxaparin 30 MG/0.3 ML SYR SUBCUT SCH (22:48)
[2023-11-21 07:44] LABS: ABS Eosinophils 0.1 10^3/uL (0.0-0.5); ABS Lymphocytes 1.1 10^3/uL (1.0-4.8); ABS Monocytes 0.5 10^3/uL (0.0-0.9); ABS Neutrophils 5.6 10^3/uL (1.5-7.6); Eosinophil % 1.3 %; Hematocrit 33.2 % (35-45); Hemoglobin 10.9 g/dL (11.5-14.3); Lymphocyte % 15.2 %; Mean Corpuscular Hemoglobin 27.9 pg (27-33); Mean Corpuscular Hgb Conc 32.8 g/dL (31-36); Mean Corpuscular Volume 85.1 fL (80-97); Mean Platelet Volume 8.2 fL (7.5-11.2); Nucleated Red Blood Cells % 0.1 %/100WBC (0.0-0.8); Platelet Count 178 10^3/uL (150-450); Red Cell Distribution Width 15.4 % (12-17); White Blood Count 7.4 10^3/uL (3.8-11.8)
[2023-11-21 07:59] LABS: Calcium 9.4 mg/dL (8.6-10.3); Creatinine, Serum 2.72 mg/dL (0.51-0.95); Magnesium 2.3 mg/dL (1.9-2.7); Potassium 3.9 mmol/L (3.5-5.0); eGFR CKD-EPI 18.6 (>60)
[2023-11-21] MEDS: oxyCODONE SR 15 mg TAB PO SCH (09:10)
[2023-11-21] MEDS ORDERED: Polyethylene Glycol 3350 17 GM PACKET PO PRN (09:27)
[2023-11-21] MEDS ORDERED: Magnesium Hydroxide LIQ 30 ML UDC PO PRN (09:27)
[2023-11-21] MEDS: Senna TAB 8.6 mg TAB PO PRN (10:36)
[2023-11-21] MEDS: Sodium Phosphate ADULT ENEMA 133 ML BTL PR ONE (15:38)
[2023-11-21] MEDS: Glycerin ADULT 2.4 gm SUPP PR ONE (16:08)
[2023-11-21] MEDS: Polyethylene Glycol 3350 17 GM PACKET PO ONE (16:08)
[2023-11-21] MEDS ORDERED: fentaNYL 100 mcg/2 ml 50 MCG/ML VIAL IV PRN (16:31)
[2023-11-21] MEDS ORDERED: Naloxone 0.4 mg VIAL 0.4 mg/ml 1 ml VIAL IV PRN (16:31)
[2023-11-21] MEDS: Senna TAB 8.6 mg TAB PO SCH (21:31)
[2023-11-21] MEDS: Magnesium Hydroxide LIQ 30 ML UDC PO SCH (21:31)
[2023-11-21] MEDS: oxyCODONE SR 20 mg TAB PO SCH (21:32)
[2023-11-22] MEDS ORDERED: Lactated Ringers 1000 ml BAG 1,000 ML IV SCH (06:00)
[2023-11-22 06:13] LABS: ABS Eosinophils 0.1 10^3/uL (0.0-0.5); ABS Lymphocytes 1.2 10^3/uL (1.0-4.8); ABS Monocytes 0.5 10^3/uL (0.0-0.9); ABS Neutrophils 3.9 10^3/uL (1.5-7.6); Eosinophil % 1.7 %; Hematocrit 33.8 % (35-45); Hemoglobin 11.1 g/dL (11.5-14.3); Lymphocyte % 20.6 %; Mean Corpuscular Hemoglobin 28.1 pg (27-33); Mean Corpuscular Hgb Conc 32.8 g/dL (31-36); Mean Corpuscular Volume 85.7 fL (80-97); Mean Platelet Volume 8.7 fL (7.5-11.2); Platelet Count 184 10^3/uL (150-450); Red Blood Count 3.94 10^6/uL (3.63-4.92); Red Cell Distribution Width 15.8 % (12-17); White Blood Count 5.7 10^3/uL (3.8-11.8)
[2023-11-22 06:27] LABS: Calcium 9.7 mg/dL (8.6-10.3); Creatinine, Serum 2.59 mg/dL (0.51-0.95); Magnesium 2.3 mg/dL (1.9-2.7); Potassium 3.9 mmol/L (3.5-5.0); eGFR CKD-EPI 19.7 (>60)
[2023-11-22] MEDS ORDERED: Polyethylene Glycol 3350 17 GM PACKET PO SCH (09:00)
[2023-11-22] MEDS ORDERED: fentaNYL 100 mcg/2 ml 50 MCG/ML VIAL ONE (10:40)
[2023-11-22] MEDS ORDERED: Midazolam 2 mg/2 ml VIAL 1 mg/ml 2 ml VIAL (2 mg) ONE (10:41)
[2023-11-22] MEDS ORDERED: Rocuronium 50 mg VIAL 10 mg/ml 5 ml VIAL (50 mg) ONE (10:45)
[2023-11-22] MEDS ORDERED: Sulfur Hexaflouride MICROSPHR 25 MG VIAL ONE (14:13)
[2023-11-23 09:16] LABS: ABS Eosinophils 0.1 10^3/uL (0.0-0.5); ABS Lymphocytes 1.1 10^3/uL (1.0-4.8); ABS Monocytes 0.5 10^3/uL (0.0-0.9); ABS Neutrophils 3.9 10^3/uL (1.5-7.6); ABS Nucleated RBC 0.01 10^3/ul; Eosinophil % 1.9 %; Hematocrit 33.6 % (35-45); Hemoglobin 10.9 g/dL (11.5-14.3); Lymphocyte % 19.9 %; Mean Corpuscular Hemoglobin 27.7 pg (27-33); Mean Corpuscular Hgb Conc 32.4 g/dL (31-36); Mean Corpuscular Volume 85.5 fL (80-97); Mean Platelet Volume 8.3 fL (7.5-11.2); Nucleated Red Blood Cells % 0.1 %/100WBC (0.0-0.8); Platelet Count 188 10^3/uL (150-450); Red Blood Count 3.93 10^6/uL (3.63-4.92); White Blood Count 5.7 10^3/uL (3.8-11.8)
[2023-11-23 10:50] LABS: Calcium 9.7 mg/dL (8.6-10.3); Creatinine, Serum 2.67 mg/dL (0.51-0.95); Magnesium 2.2 mg/dL (1.9-2.7); Potassium 4.1 mmol/L (3.5-5.0)
[2023-11-23] MEDS ORDERED: Ondansetron 4 mg VIAL 2 MG/ML 2 ml VIAL IV PRN (11:48)
[2023-11-23] MEDS ORDERED: Metoclopramide 5 MG/ML VIAL (10 mg) IV PRN (11:48)
[2023-11-23] MEDS ORDERED: Naloxone 0.4 mg VIAL 0.4 mg/ml 1 ml VIAL IV PRN (11:48)
[2023-11-23] MEDS: Lactated Ringers 1000 ml BAG 1,000 ML IV SCH (15:56)
[2023-11-23] MEDS ORDERED: fentaNYL 100 mcg/2 ml 50 MCG/ML VIAL ONE (17:25)
[2023-11-23] MEDS ORDERED: Midazolam 2 mg/2 ml VIAL 1 mg/ml 2 ml VIAL (2 mg) ONE (17:25)
[2023-11-23] MEDS ORDERED: Propofol 10 MG/ML 20 ML BTL ONE (17:25)
[2023-11-23] MEDS ORDERED: Lidocaine 2% PF 5 ML VIAL ONE (17:25)
[2023-11-23] MEDS ORDERED: Phenylephrine IV 10 MG/ML 1 ml VIAL ONE (19:09)
[2023-11-23] MEDS ORDERED: Rocuronium 50 mg VIAL 10 mg/ml 5 ml VIAL (50 mg) ONE ×2 (19:19→23:41)
[2023-11-23] MEDS ORDERED: ceFAZolin 2 GM PREMIX 2 GM/50 ML BAG ONE (22:16)
[2023-11-23] MEDS ORDERED: HYDROmorphone 0.5 MG/0.5 ML SYRINGE ONE ×2 (22:18→23:49)
[2023-11-24] MEDS ORDERED: Bupivacaine 0.5% 50 ML MDV VIAL ONE ×2 (00:31→02:07)
[2023-11-24] MEDS ORDERED: ceFAZolin VIAL VIAL ONE (01:36)
[2023-11-24] MEDS ORDERED: fentaNYL 100 mcg/2 ml 50 MCG/ML VIAL ONE ×2 (03:05→04:00)
[2023-11-24] MEDS: fentaNYL 100 mcg/2 ml 50 MCG/ML VIAL IV PRN (03:06)
[2023-11-24] MEDS ORDERED: Lactulose 30 ml UDC PO PRN (04:24)
[2023-11-24] MEDS ORDERED: Ondansetron 4 mg VIAL 2 MG/ML 2 ml VIAL IV PRN (04:24)
[2023-11-24] MEDS ORDERED: Magnesium Hydroxide LIQ 30 ML UDC PO PRN (04:24)
[2023-11-24] MEDS ORDERED: Ondansetron ODT 4 mg TAB 4 MG TAB PO PRN (04:24)
[2023-11-24] MEDS: Lactated Ringers 1000 ml BAG 1,000 ML IV SCH (05:33)
[2023-11-24] MEDS: Buffered Lidocaine 1% SYRIN 1 ml INTRADERM ONE ×2 (06:40→07:44)
[2023-11-24] MEDS: Magnesium Hydroxide LIQ 30 ML UDC PO SCH (06:50)
[2023-11-24 08:21] LABS: ABS Lymphocytes 0.5 10^3/uL (1.0-4.8); ABS Monocytes 0.6 10^3/uL (0.0-0.9); ABS Neutrophils 7.7 10^3/uL (1.5-7.6); ABS Nucleated RBC 0.01 10^3/ul; Hematocrit 36.5 % (35-45); Hemoglobin 11.7 g/dL (11.5-14.3); Lymphocyte % 5.8 %; Mean Corpuscular Hgb Conc 32.1 g/dL (31-36); Mean Corpuscular Volume 87.2 fL (80-97); Mean Platelet Volume 8.7 fL (7.5-11.2); Nucleated Red Blood Cells % 0.1 %/100WBC (0.0-0.8); Platelet Count 171 10^3/uL (150-450); Red Blood Count 4.18 10^6/uL (3.63-4.92); Red Cell Distribution Width 16.2 % (12-17); White Blood Count 8.9 10^3/uL (3.8-11.8)
[2023-11-24 08:32] LABS: Calcium 9.2 mg/dL (8.6-10.3); Creatinine, Serum 2.54 mg/dL (0.51-0.95); eGFR CKD-EPI 20.2 (>60)
[2023-11-24] MEDS: Polyethylene Glycol 3350 17 GM PACKET PO PRN (10:07)
[2023-11-24] MEDS: Vitamin THERAPEUTIC TAB PO SCH (10:08)
[2023-11-24] MEDS: ceFAZolin 1 GM ADVAN 1 GM in NS 0.9% 50 ML 50 ML IVPB SCH (10:12)
[2023-11-24] MEDS ORDERED: Dextrose 50% Syringe 50 ml 25 GM/50 ML SYRINGE IV PUSH PRN (11:51)
[2023-11-24] MEDS: Multivitamins ADULT w/MIN LIQ 15 ML UDC PO SCH (12:58)
[2023-11-24] MEDS: Enoxaparin 30 MG/0.3 ML SYR SUBCUT SCH (12:59)
[2023-11-25] MEDS: Acetaminophen IV 1 GM/100ML 1,000 MG/100 ML BAG IV SCH (06:08)
[2023-11-25] MEDS: Polyethylene Glycol 3350 17 GM PACKET PO SCH (11:15)
[2023-11-26 06:27] LABS: ABS Eosinophils 0.1 10^3/uL (0.0-0.5); ABS Lymphocytes 0.9 10^3/uL (1.0-4.8); ABS Monocytes 0.5 10^3/uL (0.0-0.9); ABS Neutrophils 3.8 10^3/uL (1.5-7.6); Eosinophil % 2.4 %; Hematocrit 24.6 % (35-45); Hemoglobin 8.3 g/dL (11.5-14.3); Lymphocyte % 17.3 %; Mean Corpuscular Hemoglobin 28.5 pg (27-33); Mean Corpuscular Hgb Conc 33.7 g/dL (31-36); Mean Corpuscular Volume 84.7 fL (80-97); Mean Platelet Volume 8.2 fL (7.5-11.2); Nucleated Red Blood Cells % 0.1 %/100WBC (0.0-0.8); Platelet Count 149 10^3/uL (150-450); Red Blood Count 2.91 10^6/uL (3.63-4.92); Red Cell Distribution Width 15.5 % (12-17); White Blood Count 5.4 10^3/uL (3.8-11.8)
[2023-11-26 06:42] LABS: Calcium 8.9 mg/dL (8.6-10.3); Creatinine, Serum 2.06 mg/dL (0.51-0.95); Potassium 3.4 mmol/L (3.5-5.0); eGFR CKD-EPI 25.9 (>60)
[2023-11-26] MEDS: Potassium Chlor 20 meq TAB.ER PO ONE (10:27)
[2023-11-26 17:25] LABS: ABS Eosinophils 0.1 10^3/uL (0.0-0.5); ABS Lymphocytes 1.1 10^3/uL (1.0-4.8); ABS Monocytes 0.5 10^3/uL (0.0-0.9); ABS Neutrophils 4.4 10^3/uL (1.5-7.6); Eosinophil % 1.9 %; Hematocrit 24.1 % (35-45); Hemoglobin 7.9 g/dL (11.5-14.3); Lymphocyte % 17.8 %; Mean Corpuscular Hemoglobin 27.8 pg (27-33); Mean Corpuscular Hgb Conc 32.9 g/dL (31-36); Mean Corpuscular Volume 84.6 fL (80-97); Mean Platelet Volume 8.3 fL (7.5-11.2); Platelet Count 158 10^3/uL (150-450); Red Blood Count 2.85 10^6/uL (3.63-4.92); Red Cell Distribution Width 15.7 % (12-17); White Blood Count 6.2 10^3/uL (3.8-11.8)
[2023-11-26] MEDS: Polyethylene Glycol 3350 17 GM PACKET PO SCH (21:44)
[2023-11-27 11:55] LABS: ABS Eosinophils 0.1 10^3/uL (0.0-0.5); ABS Lymphocytes 0.9 10^3/uL (1.0-4.8); ABS Monocytes 0.4 10^3/uL (0.0-0.9); ABS Neutrophils 4.3 10^3/uL (1.5-7.6); Eosinophil % 1.8 %; Hematocrit 24.9 % (35-45); Hemoglobin 8.3 g/dL (11.5-14.3); Lymphocyte % 16.1 %; Mean Corpuscular Hemoglobin 28.3 pg (27-33); Mean Corpuscular Hgb Conc 33.3 g/dL (31-36); Mean Corpuscular Volume 84.9 fL (80-97); Mean Platelet Volume 7.9 fL (7.5-11.2); Platelet Count 163 10^3/uL (150-450); Red Blood Count 2.93 10^6/uL (3.63-4.92); Red Cell Distribution Width 15.8 % (12-17); White Blood Count 5.8 10^3/uL (3.8-11.8)
[2023-11-27 12:11] LABS: Calcium 9.4 mg/dL (8.6-10.3); Creatinine, Serum 2.06 mg/dL (0.51-0.95); eGFR CKD-EPI 25.9 (>60)
[2023-11-28] MEDS ORDERED: Midazolam 2 mg/2 ml VIAL 1 mg/ml 2 ml VIAL (2 mg) ONE (15:32)
[2023-11-28] MEDS ORDERED: Lidocaine 2% PF 5 ML VIAL ONE (15:32)
[2023-11-28] MEDS ORDERED: fentaNYL 250 mcg/5 ml 50 MCG/ML 5 ml VIAL (250 MCG) ONE (15:32)
[2023-11-28] MEDS ORDERED: Propofol 10 MG/ML 20 ML BTL ONE (15:32)
[2023-11-28] MEDS ORDERED: Rocuronium 50 mg VIAL 10 mg/ml 5 ml VIAL (50 mg) ONE ×2 (15:33→15:36)
[2023-11-28] MEDS ORDERED: HYDROmorphone 0.5 MG/0.5 ML SYRINGE ONE ×2 (17:59→18:22)
[2023-11-28] MEDS ORDERED: ceFAZolin VIAL VIAL ONE (18:02)
[2023-11-28] MEDS ORDERED: Esmolol 10 MG/ML 10 ML (100 mg) IV ONE (18:15)
[2023-11-28] MEDS ORDERED: Ondansetron 4 mg VIAL 2 MG/ML 2 ml VIAL IV PRN ×2 (18:27→19:54)
[2023-11-28] MEDS ORDERED: Naloxone 0.4 mg VIAL 0.4 mg/ml 1 ml VIAL IV PRN ×2 (18:27→19:54)
[2023-11-28] MEDS ORDERED: fentaNYL 100 mcg/2 ml 50 MCG/ML VIAL IV PRN (18:27)
[2023-11-28] MEDS ORDERED: HYDROmorphone 1 MG/1 ML SYRINGE IV PRN ×2 (18:27→19:54)
[2023-11-28] MEDS ORDERED: Acetaminophen IV 1 GM/100ML 1,000 MG/100 ML BAG IV PRN (18:27)
[2023-11-28] MEDS ORDERED: fentaNYL 100 mcg/2 ml 50 MCG/ML VIAL ONE ×3 (18:29→20:42)
[2023-11-28] MEDS ORDERED: Ondansetron 4 mg VIAL 2 MG/ML 2 ml VIAL ONE (18:33)
[2023-11-28] MEDS ORDERED: Acetaminophen IV 1 GM/100ML 1,000 MG/100 ML BAG IV ONE (18:51)
[2023-11-28] MEDS ORDERED: Sevoflurane BOTTLE ONE (18:51)
[2023-11-28] MEDS ORDERED: Bupivacaine 0.5% SDV PF 30ML VIAL ONE (19:20)
[2023-11-28] MEDS ORDERED: Metoclopramide 5 MG/ML VIAL (10 mg) IV PRN (19:54)
[2023-11-28] MEDS: fentaNYL 100 mcg/2 ml 50 MCG/ML VIAL IV PRN (20:01)
[2023-11-28] MEDS: HYDROmorphone 1 MG/1 ML SYRINGE IV SLOW PU PRN (22:10)
[2023-11-28 23:15] LABS: ABS Lymphocytes 0.9 10^3/uL (1.0-4.8); ABS Monocytes 0.6 10^3/uL (0.0-0.9); ABS Neutrophils 9.2 10^3/uL (1.5-7.6); ABS Nucleated RBC 0.01 10^3/ul; Eosinophil % 0.3 %; Hematocrit 23.1 % (35-45); Hemoglobin 7.8 g/dL (11.5-14.3); Lymphocyte % 8.4 %; Mean Corpuscular Hemoglobin 28.6 pg (27-33); Mean Corpuscular Hgb Conc 33.6 g/dL (31-36); Mean Corpuscular Volume 85.2 fL (80-97); Mean Platelet Volume 7.9 fL (7.5-11.2); Nucleated Red Blood Cells % 0.1 %/100WBC (0.0-0.8); Platelet Count 198 10^3/uL (150-450); Red Blood Count 2.71 10^6/uL (3.63-4.92); White Blood Count 10.7 10^3/uL (3.8-11.8)
[2023-11-28 23:32] LABS: Calcium 9.3 mg/dL (8.6-10.3); Creatinine, Serum 2.27 mg/dL (0.51-0.95); Potassium 4.7 mmol/L (3.5-5.0); eGFR CKD-EPI 23.1 (>60)
[2023-11-29 08:28] LABS: ABS Eosinophils 0.1 10^3/uL (0.0-0.5); ABS Lymphocytes 1.2 10^3/uL (1.0-4.8); ABS Monocytes 0.5 10^3/uL (0.0-0.9); ABS Neutrophils 5.3 10^3/uL (1.5-7.6); ABS Nucleated RBC 0.01 10^3/ul; Eosinophil % 1.3 %; Hematocrit 21.3 % (35-45); Hemoglobin 7.1 g/dL (11.5-14.3); Lymphocyte % 16.8 %; Mean Corpuscular Hemoglobin 28.2 pg (27-33); Mean Corpuscular Hgb Conc 33.2 g/dL (31-36); Mean Platelet Volume 7.8 fL (7.5-11.2); Nucleated Red Blood Cells % 0.1 %/100WBC (0.0-0.8); Platelet Count 182 10^3/uL (150-450); Red Blood Count 2.51 10^6/uL (3.63-4.92); Red Cell Distribution Width 15.7 % (12-17); White Blood Count 7.1 10^3/uL (3.8-11.8)
[2023-11-29 08:47] LABS: Calcium 8.9 mg/dL (8.6-10.3); Creatinine, Serum 2.49 mg/dL (0.51-0.95); Potassium 4.4 mmol/L (3.5-5.0); eGFR CKD-EPI 20.7 (>60)
[2023-11-29] MEDS: ceFAZolin 1 GM ADVAN 1 GM in NS 0.9% 50 ML 50 ML IVPB SCH (15:53)
[2023-11-29] MEDS: Lactated Ringers 1000 ml BAG 1,000 ML IV SCH (17:16)
[2023-11-30 07:14] LABS: ABS Eosinophils 0.1 10^3/uL (0.0-0.5); ABS Monocytes 0.4 10^3/uL (0.0-0.9); ABS Neutrophils 3.6 10^3/uL (1.5-7.6); Eosinophil % 2.1 %; Hematocrit 18.2 % (35-45); Hemoglobin 6.1 g/dL (11.5-14.3); Lymphocyte % 19.9 %; Mean Corpuscular Hemoglobin 28.3 pg (27-33); Mean Corpuscular Hgb Conc 33.3 g/dL (31-36); Mean Platelet Volume 7.8 fL (7.5-11.2); Platelet Count 154 10^3/uL (150-450); Red Blood Count 2.14 10^6/uL (3.63-4.92); Red Cell Distribution Width 16.1 % (12-17); White Blood Count 5.2 10^3/uL (3.8-11.8)
[2023-11-30 07:23] LABS: Calcium 8.6 mg/dL (8.6-10.3); Creatinine, Serum 2.49 mg/dL (0.51-0.95); Potassium 4.3 mmol/L (3.5-5.0); eGFR CKD-EPI 20.7 (>60)
[2023-11-30] MEDS: Lactated Ringers 1000 ml BAG 1,000 ML IV SCH (15:24)
[2023-11-30 15:36] LABS: Hematocrit 20.5 % (35-45); Hemoglobin 6.9 g/dL (11.5-14.3)
[2023-11-30] MEDS: [UNRECOGNIZED DRUG - OTHER] PO SCH (23:23)
[2023-11-30] MEDS: MAGNESIUM HYDROXIDE PO SCH (23:23)
[2023-12-01 14:23] LABS: Hematocrit 23.2 % (35-45); Mean Corpuscular Hgb Conc 34.4 g/dL (31-36); Mean Corpuscular Volume 84.5 fL (80-97); Mean Platelet Volume 8.1 fL (7.5-11.2); Platelet Count 192 10^3/uL (150-450); Red Blood Count 2.75 10^6/uL (3.63-4.92); Red Cell Distribution Width 15.5 % (12-17); White Blood Count 6.6 10^3/uL (3.8-11.8)
[2023-12-01 14:53] LABS: Calcium 8.9 mg/dL (8.6-10.3); Creatinine, Serum 2.01 mg/dL (0.51-0.95); Potassium 4.1 mmol/L (3.5-5.0); eGFR CKD-EPI 26.7 (>60)
[2023-12-01 17:57] LABS: Urine Appearance Cloudy; Urine Bilirubin Negative (Negative); Urine Blood 1+ (Negative); Urine Color Yellow; Urine Glucose Negative (Negative); Urine Ketones Negative (Negative); Urine Nitrite Negative (Negative); Urine Protein 1+(30 mg/dL) (Negative); Urine Specific Gravity 1.005 (1.002-1.030); Urine Urobilinogen Negative (Negative)
[2023-12-01 18:14] LABS: Urine Bacteria 1+ (Absent); Urine Red Blood Cell Trace(0-2/hpf) (Absent); Urine Squamous Epithelial Cell Present (Absent); Urine White Blood Cell Trace(0-5/hpf) (Absent)
[2023-12-01] MEDS: HYDROmorphone 0.5 MG/0.5 ML SYRINGE IV SLOW PU PRN (20:49)
[2023-12-02 06:42] LABS: ABS Eosinophils 0.1 10^3/uL (0.0-0.5); ABS Lymphocytes 1.3 10^3/uL (1.0-4.8); ABS Monocytes 0.5 10^3/uL (0.0-0.9); ABS Neutrophils 3.9 10^3/uL (1.5-7.6); ABS Nucleated RBC 0.01 10^3/ul; Eosinophil % 2.5 %; Hemoglobin 7.8 g/dL (11.5-14.3); Lymphocyte % 22.4 %; Mean Corpuscular Hgb Conc 34.1 g/dL (31-36); Mean Corpuscular Volume 85.3 fL (80-97); Mean Platelet Volume 8.1 fL (7.5-11.2); Nucleated Red Blood Cells % 0.1 %/100WBC (0.0-0.8); Platelet Count 193 10^3/uL (150-450); Red Cell Distribution Width 15.7 % (12-17); White Blood Count 5.9 10^3/uL (3.8-11.8)
[2023-12-02 07:01] LABS: Creatinine, Serum 1.99 mg/dL (0.51-0.95); Potassium 3.9 mmol/L (3.5-5.0)
[2023-12-02 10:15] VITALS: BP 142/79
== END 2023-12-02 12:15 | DRG 478 ==
LOC: ED 15:45 → EDHOLD 15:45 → MED 21:02 → SUATTDRO 11-21 10:00 → MED 11-21 16:46 → SSU 11-24 02:58
PROVIDERS: ADMIT Internal Medicine; ATTEND Internal Medicine

== ENCOUNTER 2023-12-02 10:14 | Inpatient (IN) ==
[2023-12-02] MEDS ORDERED: Magnesium Hydroxide LIQ 30 ML UDC PO PRN (14:14)
[2023-12-02] MEDS ORDERED: Dextrose 50% Syringe 50 ml 25 GM/50 ML SYRINGE IV PUSH PRN (14:23)
[2023-12-02] MEDS ORDERED: HYDROmorphone 0.5 MG/0.5 ML SYRINGE IV SLOW PU PRN (14:33)
[2023-12-02] MEDS: oxyCODONE SR 20 mg TAB PO SCH (21:18)
[2023-12-03 06:05] LABS: ABS Basophils 0.1 10^3/uL (0.0-0.1); ABS Eosinophils 0.1 10^3/uL (0.0-0.5); ABS Lymphocytes 1.3 10^3/uL (1.0-4.8); ABS Monocytes 0.5 10^3/uL (0.0-0.9); ABS Neutrophils 3.5 10^3/uL (1.5-7.6); ABS Nucleated RBC 0.01 10^3/ul; Eosinophil % 2.5 %; Hematocrit 23.1 % (35-45); Hemoglobin 7.8 g/dL (11.5-14.3); Lymphocyte % 24.1 %; Mean Corpuscular Hemoglobin 29.4 pg (27-33); Mean Corpuscular Volume 86.5 fL (80-97); Mean Platelet Volume 8.4 fL (7.5-11.2); Nucleated Red Blood Cells % 0.1 %/100WBC (0.0-0.8); Platelet Count 172 10^3/uL (150-450); Red Blood Count 2.67 10^6/uL (3.63-4.92); Red Cell Distribution Width 15.9 % (12-17); White Blood Count 5.5 10^3/uL (3.8-11.8)
[2023-12-03 06:25] LABS: Calcium 9.1 mg/dL (8.6-10.3); Creatinine, Serum 1.87 mg/dL (0.51-0.95); Potassium 3.7 mmol/L (3.5-5.0); eGFR CKD-EPI 29.1 (>60)
[2023-12-03] MEDS: [UNRECOGNIZED DRUG - OTHER] PO SCH (09:10)
[2023-12-03] MEDS: MAGNESIUM HYDROXIDE PO SCH (09:10)
[2023-12-03] MEDS: Multivitamins ADULT w/MIN LIQ 15 ML UDC PO SCH (09:10)
[2023-12-03] MEDS: Senna TAB 8.6 mg TAB PO PRN (21:43)
[2023-12-04] MEDS: Polyethylene Glycol 3350 17 GM PACKET PO SCH (22:01)
[2023-12-04] MEDS: Heparin 5000 UNITS/ML 1 mL VIAL SUBCUT SCH (22:02)
[2023-12-05 06:22] LABS: ABS Eosinophils 0.1 10^3/uL (0.0-0.5); ABS Lymphocytes 1.4 10^3/uL (1.0-4.8); ABS Monocytes 0.4 10^3/uL (0.0-0.9); ABS Neutrophils 3.5 10^3/uL (1.5-7.6); Eosinophil % 2.2 %; Hematocrit 23.3 % (35-45); Hemoglobin 7.9 g/dL (11.5-14.3); Lymphocyte % 24.9 %; Mean Corpuscular Hemoglobin 29.3 pg (27-33); Mean Corpuscular Hgb Conc 33.8 g/dL (31-36); Mean Corpuscular Volume 86.8 fL (80-97); Mean Platelet Volume 7.6 fL (7.5-11.2); Nucleated Red Blood Cells % 0.1 %/100WBC (0.0-0.8); Platelet Count 190 10^3/uL (150-450); Red Blood Count 2.68 10^6/uL (3.63-4.92); Red Cell Distribution Width 16.5 % (12-17); White Blood Count 5.5 10^3/uL (3.8-11.8)
[2023-12-05 06:49] LABS: Albumin 2.4 g/dL (3.2-5.2); Albumin/Globulin Ratio 0.5 (1-3); Calcium 8.9 mg/dL (8.6-10.3); Creatinine, Serum 2.18 mg/dL (0.51-0.95); Globulin 4.8 g/dL (2-4); Potassium 4.2 mmol/L (3.5-5.0); Total Bilirubin 0.6 mg/dL (0.2-1.0); Total Protein 7.2 g/dL (6.4-8.9); eGFR CKD-EPI 24.2 (>60)
[2023-12-05] MEDS: [UNRECOGNIZED DRUG - OTHER] PO PRN (20:08)
[2023-12-09 06:43] LABS: ABS Eosinophils 0.1 10^3/uL (0.0-0.5); ABS Lymphocytes 1.4 10^3/uL (1.0-4.8); ABS Monocytes 0.4 10^3/uL (0.0-0.9); ABS Neutrophils 2.5 10^3/uL (1.5-7.6); ABS Nucleated RBC 0.01 10^3/ul; Eosinophil % 2.4 %; Hematocrit 24.5 % (35-45); Hemoglobin 8.2 g/dL (11.5-14.3); Lymphocyte % 31.6 %; Mean Corpuscular Hemoglobin 29.3 pg (27-33); Mean Corpuscular Hgb Conc 33.3 g/dL (31-36); Mean Corpuscular Volume 87.9 fL (80-97); Mean Platelet Volume 7.2 fL (7.5-11.2); Nucleated Red Blood Cells % 0.1 %/100WBC (0.0-0.8); Platelet Count 194 10^3/uL (150-450); Red Blood Count 2.79 10^6/uL (3.63-4.92); Red Cell Distribution Width 17.2 % (12-17); White Blood Count 4.5 10^3/uL (3.8-11.8)
[2023-12-09 07:01] LABS: Calcium 8.7 mg/dL (8.6-10.3); Creatinine, Serum 2.17 mg/dL (0.51-0.95); Potassium 4.2 mmol/L (3.5-5.0); eGFR CKD-EPI 24.4 (>60)
[2023-12-12 06:35] LABS: ABS Eosinophils 0.1 10^3/uL (0.0-0.5); ABS Lymphocytes 1.3 10^3/uL (1.0-4.8); ABS Monocytes 0.5 10^3/uL (0.0-0.9); ABS Neutrophils 2.7 10^3/uL (1.5-7.6); ABS Nucleated RBC 0.01 10^3/ul; Eosinophil % 2.6 %; Hematocrit 26.1 % (35-45); Hemoglobin 8.6 g/dL (11.5-14.3); Lymphocyte % 27.5 %; Mean Corpuscular Hemoglobin 28.8 pg (27-33); Mean Corpuscular Hgb Conc 32.9 g/dL (31-36); Mean Corpuscular Volume 87.5 fL (80-97); Mean Platelet Volume 7.6 fL (7.5-11.2); Nucleated Red Blood Cells % 0.2 %/100WBC (0.0-0.8); Platelet Count 190 10^3/uL (150-450); Red Blood Count 2.99 10^6/uL (3.63-4.92); Red Cell Distribution Width 17.8 % (12-17); White Blood Count 4.7 10^3/uL (3.8-11.8)
[2023-12-12 07:05] LABS: Albumin 2.7 g/dL (3.2-5.2); Albumin/Globulin Ratio 0.5 (1-3); Calcium 8.5 mg/dL (8.6-10.3); Creatinine, Serum 2.25 mg/dL (0.51-0.95); Globulin 5.4 g/dL (2-4); Potassium 3.9 mmol/L (3.5-5.0); Total Bilirubin 0.6 mg/dL (0.2-1.0); Total Protein 8.1 g/dL (6.4-8.9); eGFR CKD-EPI 23.3 (>60)
[2023-12-16 06:57] LABS: ABS Eosinophils 0.1 10^3/uL (0.0-0.5); ABS Lymphocytes 1.3 10^3/uL (1.0-4.8); ABS Monocytes 0.5 10^3/uL (0.0-0.9); ABS Neutrophils 2.5 10^3/uL (1.5-7.6); Eosinophil % 2.5 %; Hematocrit 27.3 % (35-45); Lymphocyte % 29.7 %; Mean Corpuscular Hemoglobin 28.8 pg (27-33); Mean Corpuscular Hgb Conc 33.1 g/dL (31-36); Mean Corpuscular Volume 87.2 fL (80-97); Mean Platelet Volume 7.7 fL (7.5-11.2); Platelet Count 176 10^3/uL (150-450); Red Blood Count 3.13 10^6/uL (3.63-4.92); Red Cell Distribution Width 17.8 % (12-17); White Blood Count 4.5 10^3/uL (3.8-11.8)
[2023-12-16 07:14] LABS: Albumin 2.9 g/dL (3.2-5.2); Albumin/Globulin Ratio 0.5 (1-3); Calcium 9.1 mg/dL (8.6-10.3); Creatinine, Serum 2.14 mg/dL (0.51-0.95); Globulin 5.5 g/dL (2-4); Potassium 3.9 mmol/L (3.5-5.0); Total Bilirubin 0.4 mg/dL (0.2-1.0); Total Protein 8.4 g/dL (6.4-8.9); eGFR CKD-EPI 24.8 (>60)
[2023-12-16 17:49] LABS: Urine Appearance Clear; Urine Bilirubin Negative (Negative); Urine Blood Negative (Negative); Urine Color Light-Yellow; Urine Glucose Negative (Negative); Urine Ketones Negative (Negative); Urine Nitrite Negative (Negative); Urine Protein 1+ (>=30 mg/dL) (Negative); Urine Specific Gravity 1.009 (1.002-1.030); Urine Urobilinogen Negative (Negative); Urine pH 6.5 (5.0-8.0)
[2023-12-16 17:56] LABS: Urine Bacteria Absent /HPF (Absent); Urine Red Blood Cell Trace(0-2/hpf) /HPF (0-Trace); Urine Squamous Epithelial Cell Present /HPF (Absent); Urine White Blood Cell Trace(0-5/hpf) /HPF (0-Trace)
[2023-12-17 16:07] LABS: ABS Eosinophils 0.1 10^3/uL (0.0-0.5); ABS Lymphocytes 1.3 10^3/uL (1.0-4.8); ABS Monocytes 0.5 10^3/uL (0.0-0.9); ABS Neutrophils 3.9 10^3/uL (1.5-7.6); Hematocrit 29.7 % (35-45); Hemoglobin 9.5 g/dL (11.5-14.3); Mean Corpuscular Hemoglobin 28.7 pg (27-33); Mean Corpuscular Hgb Conc 32.1 g/dL (31-36); Mean Corpuscular Volume 89.3 fL (80-97); Mean Platelet Volume 7.8 fL (7.5-11.2); Nucleated Red Blood Cells % 0.1 %/100WBC (0.0-0.8); Platelet Count 170 10^3/uL (150-450); Red Blood Count 3.32 10^6/uL (3.63-4.92); Red Cell Distribution Width 18.1 % (12-17); White Blood Count 5.9 10^3/uL (3.8-11.8)
[2023-12-18 07:00] VITALS: BP 146/63
== END 2023-12-18 12:20 | disposition home or self-care (01) | DRG 842 ==
LOC: PMRU 12:53
PROVIDERS: ADMIT Physical Medicine & Rehabilitation; ATTEND Physical Medicine & Rehabilitation